=== PATIENT | female | born 1995 | race Caucasian/White ===

== ENCOUNTER 2016-06-15 13:33 | Emergency (ER) ==
[2016-06-15 13:45] VITALS: BP 149/83; TEMP 98.1; BMI 30.7
[2016-06-15 15:33] LABS: BASOPHILS # (AUTO) 0.1 K/uL (0-0.2); BASOPHILS % (AUTO) 0.6 % (0.0-3.0); EOSINOPHILS # (AUTO) 0.1 K/ul (0.0-0.7); EOSINOPHILS % (AUTO) 0.5 % (0.0-7.0); HEMATOCRIT 39.4 % (37.0-47.0); HEMOGLOBIN 13.8 g/dl (12.0-16.0); IMMATURE GRANULOCYTE % (AUTO) 0.6 % (0.0-5.0); LYMPHOCYTES # (AUTO) 3.8 K/uL (0.60-3.4); LYMPHOCYTES % (AUTO) 28.6 (10.0-50.0); MEAN CORPUSCULAR VOLUME 91.4 fl (81.0-99.0); MONOCYTES # (AUTO) 0.6 K/uL (0.4-2.0); MONOCYTES % (AUTO) 4.1 (0-10); NEUTROPHILS # (AUTO) 8.8 K/ul (2.0-6.9); NEUTROPHILS % (AUTO) 65.6; PLATELET COUNT 333 10^3/uL (140-440); RED BLOOD COUNT 4.31 10^6/ul (4.20-5.40); WHITE BLOOD COUNT 13.39 K/ul (4.6-10.2)
[2016-06-15 15:45] LABS: BILIRUBIN,URINE Negative (NEGATIVE); KETONES,URINE Trace (NEGATIVE); LEUKOCYTE ESTERASE ,URINE Negative (NEGATIVE); NITRITE,URINE Negative (NEGATIVE); PROTEIN,URINE Negative (NEGATIVE); URINE, BLOOD Negative (NEGATIVE)
[2016-06-15 15:46] LABS: URINE PREGNANCY INTERNAL QC INTERNAL QC VALID
[2016-06-15 15:49] LABS: ADD URINE MICROSCOPIC YES
[2016-06-15 15:54] LABS: COCAIN SCREEN,URINE NEGATIVE (NEGATIVE); FLU INTERNAL QC INTERNAL QC VALID; RAPID FLU A NEGATIVE (NEGATIVE); RAPID FLU B NEGATIVE (NEGATIVE)
[2016-06-15 15:57] LABS: ALANINE AMINOTRANSFERASE 18 U/L (12-78); ALBUMIN/GLOBULIN RATIO 1.25; ALKALINE PHOSPHATASE 76 U/L (42-98); ANION GAP 12.6; ASPARTATE AMINO TRANSFERASE 21 U/L (15-37); BILIRUBIN,TOTAL 0.55 mg/dL (0.00-1.20); BLOOD UREA NITROGEN 11 mg/dL (7-18); BUN/CREATININE RATIO 14.47; CARBON DIOXIDE 25 mmol/L (21-32); CHLORIDE 107 mmol/L (98-107); CREATINE KINASE 73 U/L; CREATININE 0.76 mg/dL (0.60-1.30); GLUCOSE 91 mg/dL (70-110); POTASSIUM 3.6 mmol/L (3.5-5.10); SODIUM 141 mmol/L (136-145); TOTAL PROTEIN 7.2 g/dL (6.4-8.2)
--- NOTE | 2016-06-15 16:23 | ED.PDOC ---
General ED Provider: Dr. ROMARIO ESPINOZA Chief Complaint: Syncope Stated Complaint: near syncope Time Seen by Physician: 13:39 (seen with akiko yeh at all times ) Information Source: Patient Exam Limitations: No limitations Primary Care Provider: MORRIS CANNON Nursing and Triage Documentation Reviewed and Agree: Yes Neurological Complaint Exam - Syncope/Near Syncope Complaint/Exam Onset/Duration: 3 days ago and yesterday had one episode this morning Symptoms Are: Resolved Episodes Lasting: Days Number of Episodes: 3 during which pt becomes weak and near syncopal but has not had syncope Episodes Witnessed: No Loss of Consciousness: No Associated Head Trauma: No Aggravating: None Alleviating: Reports: None Associated Signs and Symptoms: Denies: Pain, Decreased oral intake, Vomiting, Diarrhea, GI blood loss, Short of air, Chest pain, Palpitations, Diaphoresis, Lightheadedness, Dizziness, Weakness, AMS, Numbness, Headache, Seizure, Remote head trauma, Recent head trauma Related History: Similar episode Cardiac Risk Factors: Reports: None GI Bleed Risk Factors: Reports: None Dysrhythmia Risk Factors: Reports: None Related Surgical History: Reports: None JVD Present: No Carotid Bruit Present: No Rectal Heme Positive: No Glascow Coma Scale (see protocol): 15 Nystagmus Present: Yes Gag Reflex Present: No Meningeal Signs Positive: No Focal Weakness: Present: None Focal Sensory Loss: Present: None Gait: Normal Babinski Sign: Negative Right, Negative Left Heel to Toe Normal: No Differential Diagnoses: CAD, Dysrhythmia, Hyperventilation, Hypoglycemia, Metabolic Reaction, Medication Reaction Quality Indicators for Cardiac Chest Pain: EKG in 10min. Quality Indicator For Non-Traumatic Chest Pain/Syncope: EKG Performed Quality Indicators for AMI: EKG in 10min. Review of Systems - Review Of Systems Constitutional: Reports: No symptoms Eyes: Reports: No symptoms Ears, Nose, Mouth, Throat: Reports: No symptoms Respiratory: Reports: No symptoms Cardiac: Reports: Syncope GI: Reports: No symptoms : Reports: No symptoms Musculoskeletal: Reports: No symptoms Skin: Reports: No symptoms Neurological: Reports: No symptoms Endocrine: Reports: No symptoms Hematologic/Lymphatic: Reports: No symptoms All Other Systems: Reviewed and Negative Past Medical History - Past Medical History Endocrine: Reports: Unknown Cardiovascular: Reports: Unknown Respiratory: Reports: Unknown Hematological: Reports: Unknown Gastrointestinal: Reports: Unknown Genitourinary: Reports: Unknown Neuro/Psych: Reports: Unknown Musculoskeletal: Reports: Unknown Cancer: Reports: Unknown Last Menstrual Period: end of Apr - Surgical History General Surgical History: Reports: Unknown - Family History Family History: Reports: Unknown - Social History Smoking Status: Current every day smoker, Heavy tobacco smoker Hx Substance Use: No Alcohol Screening: None Physical Exam - Physical Exam Appearance: Well-appearing, No pain distress, Well-nourished Eyes: JAYJAY, EOMI, Conjunctiva clear ENT: Ears normal, Nose normal, Oropharynx normal Respiratory: Airway patent, Breath sounds clear, Breath sounds equal, Respirations nonlabored Cardiovascular: RRR, Pulses normal, No rub, No murmur GI/: Soft, Nontender, No masses, Bowel sounds normal, No Organomegaly Musculoskeletal: Normal strength, ROM intact, No edema, No calf tenderness Skin: Warm, Dry, Normal color Neurological: Sensation intact, Motor intact, Reflexes intact, Cranial nerves intact, Alert, Oriented Psychiatric: Affect appropriate, Mood appropriate Interpretation - Stain Sprayer Rate: Normal Rhythm: Sinus Ectopy: None - EKG Interpretation Rate: Normal Rhythm: Sinus Ectopy: None [place]: [place] ST Segment: Normal Critical Care Note - Critical Care Note Total Time (mins): 0 Course - Course Hematology/Chemistry: 06/15/16 15:15 06/15/16 15:15 Orders, Labs, Meds: Lab Review 06/15/16 06/15/16 14:50 15:15 WBC 13.39 H RBC 4.31 Hgb 13.8 Hct 39.4 MCV 91.4 MCH 32.0 H MCHC 35.0 RDW Coeff of Erik 11.8 Plt Count 333 Immature Gran % (Auto) 0.6 Neut % (Auto) 65.6 Lymph % (Auto) 28.6 [place] % (Auto) 4.1 Eos % (Auto) 0.5 Baso % (Auto) 0.6 Immature Gran # (Auto) 0.1 Neut # 8.8 H Lymph # 3.8 H [place] # 0.6 Eos # 0.1 Baso # 0.1 Sodium 141 Potassium 3.6 Chloride 107 Carbon Dioxide 25 Anion Gap 12.6 BUN 11 Creatinine 0.76 Estimated GFR (MDRD) 95.00 BUN/Creatinine Ratio 14.47 Glucose 91 Calcium 9.0 Total Bilirubin 0.55 AST 21 ALT 18 Alkaline Phosphatase 76 Total Creatine Kinase 73 Troponin I < 0.0100 Total Protein 7.2 Albumin 4.0 Globulin 3.2 Albumin/Globulin Ratio 1.25 Urine Color Yellow Urine Clarity Cloudy Urine pH 6.0 Ur Specific [place] 1.025 Urine Protein Negative Urine Glucose (UA) Negative Urine Ketones Trace Urine Blood Negative Urine Nitrite Negative Urine Bilirubin Negative Urine Urobilinogen 0.2 Ur Leukocyte Esterase Negative Ur Squamous Epith Cells Tntc Urine Test Negative Urine Opiates Screen Positive Ur Oxycodone Screen Negative Urine Methadone Screen Negative Ur Propoxyphene Screen Negative Ur Barbiturates Screen Negative U Tricyclic Antidepress Negative Ur Phencyclidine Scrn Negative Ur Amphetamine Screen Positive U Methamphetamines Scrn Negative U Benzodiazepines Scrn Negative Urine Cocaine Screen Negative U Cannabinoids Screen Positive Influenza A (Rapid) Negative Influenza B (Rapid) Negative Orders Category Date Time Status EKG-(ED ONLY) Stat CARDIO 06/15/16 14:49 Completed BLOOD CULTURE Stat LAB 06/15/16 15:15 Received CBC W/ AUTO DIFF Stat LAB 06/15/16 15:15 Completed COMPREHENSIVE METABOLIC PANEL Stat LAB 06/15/16 15:15 Completed CREATINE KINASE Stat LAB 06/15/16 15:15 Completed DRUG SCREEN (RAPID FOR ED) [DRUG SCREEN, URINE, RAPID] LAB 06/15/16 14:50 Completed Stat MOLECULAR GROUP A STREP Stat LAB 06/15/16 14:50 Results RAPID FLU A/B Stat LAB 06/15/16 14:50 Completed STREP SCREEN Stat LAB 06/15/16 14:50 Results TROPONIN I Stat LAB 06/15/16 15:15 Completed URINALYSIS C & S IF INDICATED Stat LAB 06/15/16 14:50 Completed URINE Stat LAB 06/15/16 14:50 Completed Vital Signs: Temp Pulse Resp BP Pulse Ox 06/15/16 13:37 98.1 F 87 20 149/83 H 98 Departure - Departure Time of Disposition: 16:25 Disposition: HOME SELF-CARE Discharge Problem: Syncope, Syncope, near Instructions: Near Syncope (ED), Syncope (ED), Hypotension (ED), Lightheadedness (ED) Condition: Good Pt referred to PMD for follow-up: No Additional Instructions: Please call your Family Physician as soon as possible to schedule a follow-up appointment. Allergies/Adverse Reactions: Allergies No Known Allergies Allergy (Verified 06/15/16 14:47) Home Medications: Ambulatory Orders 1 [No Reported Medications] 02/05/16
== END 2016-06-15 16:30 | disposition home or self-care (01) ==
LOC: ED 13:33
DX: R55 Syncope and collapse (principal); F17.210 Nicotine dependence, cigarettes, uncomplicated
CPT/HCPCS: 36415; 80053; 80306; 81001; 81025; 82550; 84484; 85025; 87040; 87651; 87804; 87880; 93005; 93010; 99283

== ENCOUNTER 2016-07-11 15:26 | Emergency (ER) ==
[2016-07-11 15:35] VITALS: BP 139/88; TEMP 100.2; BMI 30.4
--- NOTE | 2016-07-11 15:36 | ED.PDOC ---
General ED Provider: Dr. VEE STEVENS JR Chief Complaint: Wound Check Stated Complaint: onset "boil" to rt inner thigh--removed clothing after work today and now it is open and draining--has had boils in past--. [ End ]1 WEEK. 100.2 74 16 98% 139/88 05/04 Time Seen by Physician: 15:35 Mode of Arrival: Walk-In Information Source: Patient Exam Limitations: No limitations Primary Care Provider: MORRIS CANNON Nursing and Triage Documentation Reviewed and Agree: No Review of Systems - Review Of Systems Constitutional: Reports: No symptoms Eyes: Reports: No symptoms Ears, Nose, Mouth, Throat: Reports: No symptoms Respiratory: Reports: No symptoms Cardiac: Reports: No symptoms GI: Reports: No symptoms : Reports: No symptoms Musculoskeletal: Reports: No symptoms Skin: Reports: Lesions Neurological: Reports: No symptoms Endocrine: Reports: No symptoms Hematologic/Lymphatic: Reports: No symptoms All Other Systems: Other Past Medical History - Past Medical History Endocrine: Reports: Unknown Cardiovascular: Reports: Unknown Respiratory: Reports: Unknown Hematological: Reports: Unknown Gastrointestinal: Reports: Unknown Genitourinary: Reports: Unknown Neuro/Psych: Reports: Unknown Musculoskeletal: Reports: Unknown Cancer: Reports: Unknown Last Menstrual Period: 2 weeks ago - Surgical History General Surgical History: Reports: Unknown - Family History Family History: Reports: Unknown - Social History Smoking Status: Current every day smoker, Light tobacco smoker Hx Substance Use: No Alcohol Screening: Occasionally - Immunizations Tetanus Shot up to Date: No Physical Exam - Physical Exam Appearance: Well-appearing Pain Distress: Mild Skin: Warm, Dry, Normal color (NOTE 5MM BY 2 X3DEEP LESION RIGHT GROIN TENDER NO ERYTHWMA NO DRAINAGE AT THSI TIME CULTURE OBTAINED) Neurological: Sensation intact, Motor intact, Reflexes intact, Cranial nerves intact, Alert, Oriented Critical Care Note - Critical Care Note Total Time (mins): 0 Course - Course Vital Signs: Temp Pulse Resp BP Pulse Ox 07/11/16 15:27 100.2 F H 74 16 139/88 98 Departure - Departure Time of Disposition: 16:24 Disposition: HOME SELF-CARE Discharge Problem: Abscess of groin, right Instructions: Abscess (ED) Condition: Good Pt referred to PMD for follow-up: Yes Additional Instructions: RECHECK ONE WEEK IF NOT RESOLVED BANDAGE FOR CLEANLINESS AND TO AVOID ABRASION BACTRIM FOR INFECTION BACITRACIN OINTMENT FOR BANDAGE IBUPROFEN FOR MUIR MAY USE WITH TYLENOL Prescriptions: Naproxen [Naprosyn] 500 mg PO Q12HR PRN #30 tablet PRN Reason: PAIN Sulfamethoxazole/Trimethoprim [Bactrim Ds 800/160 mg] 1 tab PO Q12HR #14 tablet Bacitracin 1 applic TP 2-4XD #1 pkg Allergies/Adverse Reactions: Allergies No Known Allergies Allergy (Verified 07/11/16 15:33) Home Medications: Ambulatory Orders Bacitracin 1 applic TP 2-4XD #1 pkg 07/11/16 Naproxen [Naprosyn] 500 mg PO Q12HR PRN #30 tablet 07/11/16 Sulfamethoxazole/Trimethoprim [Bactrim Ds 800/160 mg] 1 tab PO Q12HR #14 tablet 07/11/16
== END 2016-07-11 16:40 | disposition home or self-care (01) ==
LOC: ED 15:26
DX: L02.214 Cutaneous abscess of groin (principal); B95.62 Methicillin resistant Staphylococcus aureus infection as the cause of diseases classified elsewhere; F17.210 Nicotine dependence, cigarettes, uncomplicated
CPT/HCPCS: 87070; 87186; 99283

== ENCOUNTER 2016-07-13 11:30 | Emergency (ER) ==
[2016-07-13 11:36] VITALS: BP 135/84; TEMP 98.3; BMI 30.7
[2016-07-13 13:24] LABS: BASOPHILS # (AUTO) 0.1 K/uL (0-0.2); BASOPHILS % (AUTO) 0.4 % (0.0-3.0); EOSINOPHILS # (AUTO) 0.1 K/ul (0.0-0.7); EOSINOPHILS % (AUTO) 0.6 % (0.0-7.0); HEMATOCRIT 38.6 % (37.0-47.0); HEMOGLOBIN 13.6 g/dl (12.0-16.0); IMMATURE GRANULOCYTE % (AUTO) 0.3 % (0.0-5.0); LYMPHOCYTES # (AUTO) 4.1 K/uL (0.60-3.4); LYMPHOCYTES % (AUTO) 30.2 (10.0-50.0); MEAN CORPUSCULAR HEMOGLOBIN 32.2 pg (27.0-31.0); MEAN CORPUSCULAR HGB CONC 35.2 (31.8-35.4); MEAN CORPUSCULAR VOLUME 91.5 fl (81.0-99.0); MONOCYTES # (AUTO) 0.7 K/uL (0.4-2.0); MONOCYTES % (AUTO) 5.2 (0-10); NEUTROPHILS # (AUTO) 8.7 K/ul (2.0-6.9); NEUTROPHILS % (AUTO) 63.3; PLATELET COUNT 347 10^3/uL (140-440); RED BLOOD COUNT 4.22 10^6/ul (4.20-5.40); WHITE BLOOD COUNT 13.67 K/ul (4.6-10.2)
[2016-07-13 13:49] LABS: ALANINE AMINOTRANSFERASE 15 U/L (12-78); ALBUMIN 3.8 g/dL (3.4-5.0); ALBUMIN/GLOBULIN RATIO 1.19; ALKALINE PHOSPHATASE 78 U/L (42-98); ANION GAP 13.3; ASPARTATE AMINO TRANSFERASE 19 U/L (15-37); BILIRUBIN,TOTAL 0.35 mg/dL (0.00-1.20); BLOOD UREA NITROGEN 12 mg/dL (7-18); BUN/CREATININE RATIO 17.39; CALCIUM 9.4 mg/dL (8.2-10.2); CARBON DIOXIDE 25 mmol/L (21-32); CHLORIDE 106 mmol/L (98-107); CREATINE KINASE 83 U/L; CREATININE 0.69 mg/dL (0.60-1.30); GLUCOSE 94 mg/dL (70-110); POTASSIUM 4.3 mmol/L (3.5-5.10); SODIUM 140 mmol/L (136-145)
[2016-07-13 13:57] LABS: URINE PREGNANCY INTERNAL QC INTERNAL QC VALID
--- NOTE | 2016-07-13 13:58 | ED.PDOC ---
General ED Provider: Dr. ROMARIO ESPINOZA Chief Complaint: Chest Pain Stated Complaint: CHEST PAIN Time Seen by Physician: 12:20 (CHEST PAIN AFTER IN THE FAMILY) Mode of Arrival: Walk-In Information Source: Patient Exam Limitations: No limitations Primary Care Provider: MORRIS CANNON Nursing and Triage Documentation Reviewed and Agree: No Cardiovascular Complaint Exam - Chest Pain Complaint/Exam Onset: Gradual Duration: 2 DAYS Symptoms Are: Still present Initial Severity: Mild Current Severity: Mild Location: Reports: Midsternal Pain Radiates: Reports: None Aggravating: Reports: None Alleviating: Reports: None Associated Signs and Symptoms: Denies: Diaphoresis, Nausea, Vomiting, Fever, Palpitations, Cough, Hemoptysis, Back pain, Abdominal pain, Dizziness, Short of air, Calf pain, Calf swelling Related History: Reports: Similar episode History of Healthcare-Acquired Pneumonia: Reports: No AMI/ACS Risk Factors: Reports: None TAD Risk Factors: Reports: None Pulmonary Embolism Risk Factors: Reports: None Prior Care for this Complaint: No Recent Stress Test: No Recent Echo/LV Function: No JVD Present: No Subcutaneous Emphysema Present: No Diminshed Breath Sounds: No Reproducible Chest Wall Pain: No Bilateral Pulses Present: No If Risk Factors for AMI/ACS Consider: EKG, Cardiac Enzymes Quality Indicator For Non-Traumatic Chest Pain/Syncope: EKG Performed Review of Systems - Review Of Systems Constitutional: Reports: No symptoms Eyes: Reports: No symptoms Ears, Nose, Mouth, Throat: Reports: No symptoms Respiratory: Reports: No symptoms Cardiac: Reports: Chest pain GI: Reports: No symptoms : Reports: No symptoms Musculoskeletal: Reports: No symptoms Skin: Reports: No symptoms Neurological: Reports: No symptoms Endocrine: Reports: No symptoms Hematologic/Lymphatic: Reports: No symptoms All Other Systems: Reviewed and Negative Past Medical History - Past Medical History Endocrine: Reports: Unknown Cardiovascular: Reports: Unknown Respiratory: Reports: Unknown Hematological: Reports: Unknown Gastrointestinal: Reports: Unknown Genitourinary: Reports: Unknown Neuro/Psych: Reports: Unknown Musculoskeletal: Reports: Unknown Cancer: Reports: Unknown Last Menstrual Period: 2 weeks ago - Surgical History General Surgical History: Reports: Unknown - Family History Family History: Reports: Unknown - Social History Smoking Status: Current every day smoker, Heavy tobacco smoker Hx Substance Use: No Alcohol Screening: Occasionally - Immunizations Tetanus Shot up to Date: Yes Physical Exam - Physical Exam Appearance: Well-appearing, No pain distress, Well-nourished Eyes: JAYJAY, EOMI, Conjunctiva clear ENT: Ears normal, Nose normal, Oropharynx normal Respiratory: Airway patent, Breath sounds clear, Breath sounds equal, Respirations nonlabored Cardiovascular: RRR, Pulses normal, No rub, No murmur GI/: Soft, Nontender, No masses, Bowel sounds normal, No Organomegaly Musculoskeletal: Normal strength, ROM intact, No edema, No calf tenderness Skin: Warm, Dry, Normal color Neurological: Sensation intact, Motor intact, Reflexes intact, Cranial nerves intact, Alert, Oriented Psychiatric: Affect appropriate, Mood appropriate Critical Care Note - Critical Care Note Total Time (mins): 0 Course - Course Hematology/Chemistry: 07/13/16 13:15 07/13/16 13:15 Orders, Labs, Meds: Lab Review 07/13/16 13:15 WBC 13.67 H RBC 4.22 Hgb 13.6 Hct 38.6 MCV 91.5 MCH 32.2 H MCHC 35.2 RDW Coeff of Erik 11.8 Plt Count 347 Immature Gran % (Auto) 0.3 Neut % (Auto) 63.3 Lymph % (Auto) 30.2 [place] % (Auto) 5.2 Eos % (Auto) 0.6 Baso % (Auto) 0.4 Immature Gran # (Auto) 0.0 Neut # 8.7 H Lymph # 4.1 H [place] # 0.7 Eos # 0.1 Baso # 0.1 Sodium 140 Potassium 4.3 Chloride 106 Carbon Dioxide 25 Anion Gap 13.3 BUN 12 Creatinine 0.69 Estimated GFR (MDRD) 106.00 BUN/Creatinine Ratio 17.39 Glucose 94 Calcium 9.4 Total Bilirubin 0.35 AST 19 ALT 15 Alkaline Phosphatase 78 Total Creatine Kinase 83 Troponin I < 0.0100 Total Protein 7.0 Albumin 3.8 Globulin 3.2 Albumin/Globulin Ratio 1.19 Orders Category Date Time Status EKG-(ED ONLY) Stat CARDIO 07/13/16 13:07 Completed CBC W/ AUTO DIFF Stat LAB 07/13/16 13:15 Completed COMPREHENSIVE METABOLIC PANEL Stat LAB 07/13/16 13:15 Completed CREATINE KINASE Stat LAB 07/13/16 13:15 Completed TROPONIN I Stat LAB 07/13/16 13:15 Completed URINE Stat LAB 07/13/16 13:40 Received CHEST, 2 VIEWS PA & LAT Stat RADS 04/21/17 13:07 Ordered Vital Signs: Temp Pulse Resp BP Pulse Ox 07/13/16 11:30 98.3 F 91 H 16 135/84 96 DEREJE Risk Score DEREJE Risk Score: Risk Score Odds of by 30D 0 0.1 (0.1-0.2) 1 0.3 (0.2-0.3) 2 0.4 (0.3-0.5) 3 0.7 (0.6-0.9) 4 1.2 (1.0-1.5) 5 2.2 (1.9-2.6) 6 3.0 (2.5-3.6) 7 4.8 (3.8-6.1) Departure - Departure Time of Disposition: 13:58 Disposition: HOME SELF-CARE Discharge Problem: Chest pain, Atypical angina Instructions: Angina (ED), Chest Pain (ED), Noncardiac Chest Pain (ED) Condition: Good Pt referred to PMD for follow-up: No Additional Instructions: Please call your Family Physician as soon as possible to schedule a follow-up appointment. Allergies/Adverse Reactions: Allergies No Known Allergies Allergy (Verified 07/13/16 11:36) Home Medications: Ambulatory Orders Bacitracin 1 applic TP 2-4XD #1 pkg 07/11/16 Naproxen [Naprosyn] 500 mg PO Q12HR PRN #30 tablet 07/11/16 Sulfamethoxazole/Trimethoprim [Bactrim Ds 800/160 mg] 1 tab PO Q12HR #14 tablet 07/11/16
--- NOTE | 2016-07-13 14:34 | DI ---
EXAM: Two x-rays of the chest. Comparison: 12/21/2009. Reason for exam: Pain. FINDINGS: No pneumothorax, pleural effusion, or focal consolidation. The cardiac silhouette is not enlarged. The imaged osseous structures are unremarkable without acute fracture. Impression: No acute cardiopulmonary process.
== END 2016-07-13 15:02 | disposition home or self-care (01) ==
LOC: ED 11:30
DX: I20.9 Angina pectoris, unspecified (principal); F17.210 Nicotine dependence, cigarettes, uncomplicated
CPT/HCPCS: 36415; 80053; 81025; 82550; 84484; 85025; 93005; 93010; 99283

== ENCOUNTER 2016-08-11 20:37 | Emergency (ER) ==
[2016-08-11 20:45] VITALS: BP 133/87; TEMP 98.4; BMI 28.3
--- NOTE | 2016-08-11 20:53 | ED.PDOC ---
General ED Provider: Dr. DAVID CHARLTON Chief Complaint: Sore Throat Stated Complaint: Patient states that she has had sore throat for 2 days with a hoarse voice. Also complains of headache, cold sweats, temp 99.7 at 3pm, vomited x 3 today, Took 400mg of Ibuprofen at 6 pm Time Seen by Physician: 21:20 Mode of Arrival: Walk-In Information Source: Patient Exam Limitations: No limitations Primary Care Provider: MORRIS CANNON Nursing and Triage Documentation Reviewed and Agree: Yes EENT Complaint Exam - Throat Complaint/Exam Onset/Duration: 2 days Symptoms Are: Still present Timimg: Constant Initial Severity: Moderate Current Severity: Moderate Aggravating: Reports: Eating Alleviating: Reports: Antipyretics Associated Signs and Symptoms: Reports: Fever, Vomiting Uvula Midline: Yes Montse-tonsillar Fluctuence: No Scarlatinaform Rash Present: No Stridor Present: No Sinus Tenderness Present: No Tonsillar Hypertrophy Present: No Tonsillar Exudate Present: No Motnse-tonsillar Swelling Present: No Adenopathy Present: No Splenomegaly Present: No Differential Diagnoses: Tonsillitis, URI Review of Systems - Review Of Systems Constitutional: Reports: Fever Ears, Nose, Mouth, Throat: Reports: Throat swelling GI: Reports: Nausea, Vomiting Neurological: Reports: Headache All Other Systems: Reviewed and Negative Past Medical History - Past Medical History Endocrine: Reports: Unknown Cardiovascular: Reports: Unknown Respiratory: Reports: Unknown Hematological: Reports: Unknown Gastrointestinal: Reports: Unknown Genitourinary: Reports: Unknown Neuro/Psych: Reports: Unknown Musculoskeletal: Reports: Unknown Cancer: Reports: Unknown Last Menstrual Period: UNSURE - Surgical History General Surgical History: Reports: Unknown - Family History Family History: Reports: Unknown - Social History Smoking Status: Current every day smoker, Heavy tobacco smoker Hx Substance Use: No Alcohol Screening: Occasionally - Immunizations Tetanus Shot up to Date: Yes Physical Exam - Physical Exam Appearance: Ill-appearing Ill-appearing: Mild Pain Distress: Mild Eyes: JAYJAY, EOMI, Conjunctiva clear ENT: Ears normal, Nose normal, Oropharynx normal Neck: Supple Respiratory: Airway patent, Breath sounds clear, Breath sounds equal, Respirations nonlabored Cardiovascular: RRR, Pulses normal, No rub, No murmur GI/: Soft, Nontender, No masses, Bowel sounds normal, No Organomegaly Musculoskeletal: Normal strength Skin: Warm, Dry, Normal color Psychiatric: Anxious Critical Care Note - Critical Care Note Total Time (mins): 0 Course - Course Vital Signs: Temp Pulse Resp BP Pulse Ox 08/11/16 20:38 98.4 F 86 18 133/87 99 Departure - Departure Time of Disposition: 21:30 Disposition: HOME SELF-CARE Discharge Problem: Viral syndrome Pharyngitis Qualifiers: Pharyngitis/tonsillitis etiology: other specified organisms Qualifier Code: ( J02.8) Acute pharyngitis due to other specified organisms Instructions: Viral Syndrome (ED), Pharyngitis (ED) Condition: Fair Pt referred to PMD for follow-up: Yes Additional Instructions: Alternate Motrin and Tylenol as needed for fever Follow up with PCP in 3 days Push fluids. Allergies/Adverse Reactions: Allergies No Known Allergies Allergy (Verified 08/11/16 20:45) Home Medications: Ambulatory Orders Ibuprofen 200 mg PO Q4H PRN 08/11/16 Naproxen Sodium [Aleve] 220 mg PO BID PRN 08/11/16 Disposition Discussed With: Patient
[2016-08-11 21:27] LABS: FLU INTERNAL QC INTERNAL QC VALID; RAPID FLU A NEGATIVE (NEGATIVE); RAPID FLU B NEGATIVE (NEGATIVE)
[2016-08-11] MEDS ORDERED: MOTRIN PO STA (21:27)
== END 2016-08-11 21:50 | disposition home or self-care (01) ==
LOC: ED 20:37
DX: B34.9 Viral infection, unspecified (principal); J02.9 Acute pharyngitis, unspecified
CPT/HCPCS: 87651; 87804; 87880; 99283

== ENCOUNTER 2016-09-14 14:47 | Outpatient (CLI) ==
--- NOTE | 2016-09-14 15:19 | DI ---
EXAM: Left fingers three views HISTORY: Third digit injury, pain. FINDINGS: Bone and joint structures appear normal. There is no displaced fracture or joint disloca tion seen. General bone density and soft tissues are within normal limits. IMPRESSION: Findings within normal limits.
== END 2016-09-14 14:48 | disposition home or self-care (01) ==
LOC: RAD 14:47
PROVIDERS: ATTEND Family Medicine
DX: M79.645 Pain in left finger(s) (principal)

== ENCOUNTER 2016-09-29 19:13 | Emergency (ER) ==
[2016-09-29 19:20] VITALS: BP 147/92; TEMP 100.1; BMI 27.4
[2016-09-29 19:29] LABS: BILIRUBIN,URINE 1+ (NEGATIVE); KETONES,URINE Negative (NEGATIVE); LEUKOCYTE ESTERASE ,URINE Negative (NEGATIVE); NITRITE,URINE Negative (NEGATIVE); PH,URINE 5.5 (5-9); PROTEIN,URINE 1+ (NEGATIVE); URINE, BLOOD Negative (NEGATIVE)
[2016-09-29 19:32] LABS: ADD URINE MICROSCOPIC YES
[2016-09-29 19:33] LABS: URINE PREGNANCY INTERNAL QC INTERNAL QC VALID
--- NOTE | 2016-09-29 19:42 | ED.PDOC ---
General ED Provider: Dr. MORRIS CANNON-ER Chief Complaint: Back Pain Stated Complaint: i helped a friend move some book shelves i hurt mylower back Time Seen by Physician: 19:15 Mode of Arrival: Walk-In Information Source: Patient Exam Limitations: No limitations Primary Care Provider: MORRIS CANNON Nursing and Triage Documentation Reviewed and Agree: Yes Musculoskeletal Complaint Exam - Back Pain Complaint/Exam Mechanism of Injury: Reports: No known trauma Onset/Duration: 24hrs Symptoms Are: Still present Timing: Constant Initial Severity: Mild Current Severity: Mild Location: Reports: Discrete Character: Reports: Dull, Aching Aggravating: Reports: Movements, Lifting, Bending, Walking Alleviating: Reports: None Associated Signs and Symptoms: Denies: Swelling, Redness, Bruising, Fever, Weakness, Numbness, Tingling, Bladder incontinence, Bowel incontinence, Weight loss, Pain with weight bearing AAA Risk Factors: Reports: None Cauda Equina Risk Factors: Reports: None Epidural Abcess Risk Factors: Reports: None Related Surgical History: Reports: None Focal Tenderness: Yes Paraspinal Muscle Tenderness: Yes Paraspinal Muscle Spasm: Yes Scoliosis: No Lordosis: No Kyphosis: No SLR Test: Right Negative, Left Negative Hip Motion Testing Pain: Right Negative, Left Negative Focal Weakness: Present: None Focal Sensory Loss: Present: None Gait: Present: Abnormal Differential Diagnoses: Strain, Sprain Review of Systems - Review Of Systems Constitutional: Reports: No symptoms Eyes: Reports: No symptoms Ears, Nose, Mouth, Throat: Reports: No symptoms Respiratory: Reports: No symptoms Cardiac: Reports: No symptoms GI: Reports: No symptoms : Reports: No symptoms Musculoskeletal: Reports: Back pain, Muscle pain Skin: Reports: No symptoms Neurological: Reports: No symptoms Endocrine: Reports: No symptoms Hematologic/Lymphatic: Reports: No symptoms All Other Systems: Reviewed and Negative Past Medical History - Past Medical History Previously Healthy: Yes Endocrine: Reports: Unknown Cardiovascular: Reports: Unknown Respiratory: Reports: Unknown Hematological: Reports: Unknown Gastrointestinal: Reports: Unknown Genitourinary: Reports: Unknown Neuro/Psych: Reports: Unknown Musculoskeletal: Reports: Unknown Cancer: Reports: Unknown Last Menstrual Period: last month - Surgical History General Surgical History: Reports: Unknown - Family History Family History: Reports: Unknown - Social History Smoking Status: Current some day smoker Hx Substance Use: No Alcohol Screening: Occasionally Lives: With family - Immunizations Tetanus Shot up to Date: Yes Physical Exam - Physical Exam Appearance: Well-appearing, No pain distress, Well-nourished Pain Distress: Moderate Eyes: JAYJAY, EOMI, Conjunctiva clear ENT: Ears normal, Nose normal, Oropharynx normal Neck: Supple Respiratory: Airway patent Cardiovascular: RRR, Pulses normal, No rub, No murmur GI/: Soft, Nontender, No masses, Bowel sounds normal, No Organomegaly Musculoskeletal: Limited ROM Skin: Warm Neurological: Sensation intact, Motor intact, Reflexes intact, Cranial nerves intact, Alert, Oriented Psychiatric: Affect appropriate Critical Care Note - Critical Care Note Total Time (mins): 0 Course - Course Orders, Labs, Meds: Lab Review 09/29/16 19:22 Urine Color Yellow Urine Clarity Turbid Urine pH 5.5 Ur Specific [place] >=1.030 Urine Protein 1+ Urine Glucose (UA) Negative Urine Ketones Negative Urine Blood Negative Urine Nitrite Negative Urine Bilirubin 1+ Urine Urobilinogen 1.0 Ur Leukocyte Esterase Negative Ur Squamous Epith Cells Tntc Urine Mucus 2+ Urine Test Negative Orders Category Date Time Status URINALYSIS C & S IF INDICATED Stat LAB 09/29/16 19:22 Completed URINE Stat LAB 09/29/16 19:22 Completed Vital Signs: Temp Pulse Resp BP Pulse Ox 09/29/16 19:14 100.1 F H 88 16 147/92 H 98 Departure - Departure Time of Disposition: 19:41 Disposition: HOME SELF-CARE Discharge Problem: Backache Instructions: Low Back Strain (ED) Condition: Good Pt referred to PMD for follow-up: No Additional Instructions: toradol 10mg qid prn pain #16--flexeril 5mg tid #21--heat alt ice--recheck in 72hrs if not improved Allergies/Adverse Reactions: Allergies No Known Allergies Allergy (Verified 09/29/16 19:22) Home Medications: Ambulatory Orders Ibuprofen 200 mg PO Q4H PRN 08/11/16 Naproxen Sodium [Aleve] 220 mg PO BID PRN 08/11/16 Disposition Discussed With: Patient
== END 2016-09-29 19:51 | disposition home or self-care (01) ==
LOC: ED 19:13
DX: M54.5 Low back pain (principal); X50.1XXA Overexertion from prolonged static or awkward postures, initial encounter; F17.210 Nicotine dependence, cigarettes, uncomplicated
CPT/HCPCS: 81001; 81025; 99282

== ENCOUNTER 2016-10-03 14:24 | Outpatient (CLI) ==
--- NOTE | 2016-10-03 15:03 | DI ---
Exam: Five x-rays of the lumbar spine. Comparison: CT performed 07/31/2014. Reason for exam: Low back pain. FINDINGS: No acute fracture or listhesis. The vertebral bodies and intervertebral body disc space heights are well maintained. There is no significant arthrosis. There is minimal straightening of the lumbar lordotic curve. Impression: No acute fracture or listhesis in the lumbar spine
== END 2016-10-03 14:25 | disposition home or self-care (01) ==
LOC: RAD 14:24
PROVIDERS: ATTEND Family Medicine
DX: M54.5 Low back pain (principal)

== ENCOUNTER 2016-11-01 10:35 | Outpatient (CLI) ==
--- NOTE | 2016-11-02 11:39 | MRI ---
EXAM: Lumbar spine MRI without contrast. HISTORY: Back pain with radiculopathy. COMPARISON: Lumbar spine radiographs 10/03/[address] scan 07/31/2014. TECHNIQUE: Multiplanar, multisequence MR images were acquired of the lumbar spine without contrast. FINDINGS: Five lumbar-type vertebra are present. There is straightening of the usual lumbar lordos is and there is a trace anterolisthesis of L4 on L5 and 1.5 mm retrolisthesis of L5 on S1. There is minor lower lumbar ventral spondylosis and there is mild disc space narrowing disc desiccation at L 4-5 and moderate disc space narrowing and disc desiccation at L5-S1 with minor endplate irregularity and dark T1 and STIR signal sclerosis along the S1 superior endplate. Conus medullaris ends at L1- 2 and has normal configuration and signal intensity. 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 The partially visualized liver, spleen and kidneys are unremarkable. There are no paravertebral mas ses. T12-L1, L1-2, L2-3, L3-4: The intervertebral discs are normal. There is no central canal stenosis or foraminal stenosis. L4-5: There is mild disc bulge and a small central disc extrusion that extends onto the dorsum of t he L5 vertebra superior endplate. The bulging disc minimally narrows inferior neural foramina bilat erally, greater on the left. The thecal sac is small at this level measures 8.2 mm in diameter. L5-S1: There is retrolisthesis of L5 on S1 and the superior endplate of S1 is smaller than the infe rior endplate of L5. There is a minor disc bulge with marginal osteophytes that minimally narrows in ferior neural foramina bilaterally and there is a superimposed central disc protrusion that is sligh tly asymmetric the right which encroaches on the right S1 nerve. There is minor bilateral foraminal stenosis, greater on the left. IMPRESSION: 1. Small central disc herniation L4-5. 2. Small central disc herniation L5-S1 that is slightly asymmetric to the right which encroaches on the right S1 nerve.
== END 2016-11-01 10:36 | disposition home or self-care (01) ==
LOC: RAD 10:35
PROVIDERS: ATTEND Family Medicine
DX: M54.40 Lumbago with sciatica, unspecified side (principal); M54.16 Radiculopathy, lumbar region

== ENCOUNTER 2016-11-23 17:10 | Emergency (ER) ==
[2016-11-23 17:13] VITALS: BP 147/80; TEMP 99.5; BMI 29.2
[2016-11-23] MEDS ORDERED: ZOFRAN 4 MG/2 ML IM STA (17:17)
[2016-11-23] MEDS ORDERED: MORPHINE 4 MG/ML SYRINGE IM STA (17:17)
--- NOTE | 2016-11-23 17:21 | ED.PDOC ---
General ED Provider: Dr. ROMARIO ESPINOZA Chief Complaint: Back Pain Stated Complaint: back pain Time Seen by Physician: 05:30 (chronic back pain) Mode of Arrival: Walk-In Information Source: Patient Exam Limitations: No limitations Primary Care Provider: MORRIS CANNON Nursing and Triage Documentation Reviewed and Agree: Yes Musculoskeletal Complaint Exam - Back Pain Complaint/Exam Mechanism of Injury: Reports: No known trauma Onset/Duration: chronic Symptoms Are: Still present Timing: Intermittent Episodes Lasting: Days Initial Severity: Moderate Current Severity: Moderate Location: Reports: Discrete Character: Reports: Aching Aggravating: Reports: None Alleviating: Reports: None Associated Signs and Symptoms: Denies: Swelling, Redness, Bruising, Fever, Weakness, Numbness, Tingling, Abdominal pain, Flank pain, Bladder incontinence, Bowel incontinence, Weight loss, Pain with weight bearing Related History: Reports: Similar episode TAD Risk Factors: Reports: None AAA Risk Factors: Reports: None Cauda Equina Risk Factors: Reports: None Related Surgical History: Reports: None Focal Tenderness: No Paraspinal Muscle Tenderness: No Paraspinal Muscle Spasm: No Scoliosis: No Lordosis: No Kyphosis: No SLR Test: Right Negative, Left Negative Hip Motion Testing Pain: Right Negative, Left Negative Focal Weakness: Present: None Focal Sensory Loss: Present: None Gait: Present: Normal Review of Systems - Review Of Systems Constitutional: Reports: No symptoms Eyes: Reports: No symptoms Ears, Nose, Mouth, Throat: Reports: No symptoms Respiratory: Reports: No symptoms Cardiac: Reports: No symptoms GI: Reports: No symptoms : Reports: No symptoms Musculoskeletal: Reports: Back pain Skin: Reports: No symptoms Neurological: Reports: No symptoms Endocrine: Reports: No symptoms Hematologic/Lymphatic: Reports: No symptoms All Other Systems: Reviewed and Negative Past Medical History - Past Medical History Previously Healthy: Yes Endocrine: Reports: Unknown Cardiovascular: Reports: Unknown Respiratory: Reports: Unknown Hematological: Reports: Unknown Gastrointestinal: Reports: Unknown Genitourinary: Reports: Unknown Neuro/Psych: Reports: Unknown Musculoskeletal: Reports: Unknown Cancer: Reports: Unknown Last Menstrual Period: 3 WEEKS AGO - Surgical History General Surgical History: Reports: Unknown - Family History Family History: Reports: Unknown - Social History Smoking Status: Current some day smoker Hx Substance Use: No Alcohol Screening: Occasionally Physical Exam - Physical Exam Appearance: Well-appearing, No pain distress, Well-nourished Eyes: JAYJAY, EOMI, Conjunctiva clear ENT: Ears normal, Nose normal, Oropharynx normal Respiratory: Airway patent, Breath sounds clear, Breath sounds equal, Respirations nonlabored Cardiovascular: RRR, Pulses normal, No rub, No murmur GI/: Soft, Nontender, No masses, Bowel sounds normal, No Organomegaly Musculoskeletal: Normal strength, ROM intact, No edema, No calf tenderness Skin: Warm, Dry, Normal color Neurological: Sensation intact, Motor intact, Reflexes intact, Cranial nerves intact, Alert, Oriented Psychiatric: Affect appropriate, Mood appropriate Critical Care Note - Critical Care Note Total Time (mins): 0 Course - Course Orders, Labs, Meds: Orders Category Date Time Status Morphine Sulfate [Morphine 4 mg/ml Syringe] MEDS 11/23/16 17:17 Stat 4 mg IM ONCE STA Ondansetron HCl/Pf [Zofran 4 mg/2 ml] MEDS 11/23/16 17:17 Stat 4 mg IM ONCE STA Medications Discontinued Medications Generic Name Dose Route Start Last Admin Trade Name Matheusq PRN Reason Stop Dose Admin Morphine Sulfate 4 mg 11/23/16 17:17 Morphine 4 Mg/Ml Syringe IM 11/23/16 17:18 ONCE STA Ondansetron HCl 4 mg 11/23/16 17:17 Zofran 4 Mg/2 Ml IM 11/23/16 17:18 ONCE STA Vital Signs: Temp Pulse Resp BP Pulse Ox 11/23/16 17:10 99.5 F 95 H 20 147/80 H 98 Departure - Departure Time of Disposition: 17:22 Disposition: HOME SELF-CARE Discharge Problem: Backache Chronic back pain Qualifiers: Back pain laterality: midline Instructions: Chronic Back Pain (ED) Condition: Good Pt referred to PMD for follow-up: Yes Prescriptions: Hydrocodone/Acetaminophen [Occidental 10-325 Tablet] 1 each PO Q8HR #7 tablet Allergies/Adverse Reactions: Allergies No Known Allergies Allergy (Verified 11/23/16 17:13) Home Medications: Ambulatory Orders Ibuprofen 200 mg PO Q4H PRN 08/11/16 Naproxen Sodium [Aleve] 220 mg PO BID PRN 08/11/16 Hydrocodone/Acetaminophen [Occidental 10-325 Tablet] 1 each PO Q8HR #7 tablet
== END 2016-11-23 17:49 | disposition home or self-care (01) ==
LOC: ED 17:10
DX: M54.9 Dorsalgia, unspecified (principal); G89.29 Other chronic pain; F17.210 Nicotine dependence, cigarettes, uncomplicated
CPT/HCPCS: 96372; 99282

== ENCOUNTER 2017-02-13 17:42 | Emergency (ER) ==
[2017-02-13 17:47] VITALS: BP 148/91; TEMP 100.6; BMI 31.8
[2017-02-13] MEDS ORDERED: NORCO 10-325 PO STA (18:26)
--- NOTE | 2017-02-13 18:32 | ED.PDOC ---
General Stated Complaint: LOW BACK AND RIGHT FLANK PAIN Time Seen by Physician: 17:50 (SEEN WITH MAY AT ALL TIMES NO TRAUMA HISTORY OF CHRONIC BACK PAIN) Mode of Arrival: Walk-In Information Source: Patient Exam Limitations: No limitations Nursing and Triage Documentation Reviewed and Agree: Yes <ROMARIO ESPINOZA - Last Filed: 02/13/17 18:30> <NICOLE RODRIGUEZ - Last Filed: 02/13/17 20:26> ED Provider: Dr. NICOLE RODRIGUEZ Chief Complaint: Back Pain Primary Care Provider: MORRIS CANNON Musculoskeletal Complaint Exam - Back Pain Complaint/Exam Mechanism of Injury: Reports: No known trauma Onset/Duration: 2 DAYS Symptoms Are: Still present Timing: Constant Episodes Lasting: Hours Initial Severity: Moderate Current Severity: Moderate Location: Reports: Discrete Character: Reports: Aching Aggravating: Reports: Movements, Lifting, Bending, Walking Alleviating: Reports: Rest, Position Associated Signs and Symptoms: Reports: Fever, Flank pain. Denies: Swelling, Redness, Bruising, Weakness, Numbness, Tingling, Abdominal pain, Bladder incontinence, Bowel incontinence, Weight loss, Pain with weight bearing Related History: Reports: Similar episode TAD Risk Factors: Reports: None AAA Risk Factors: Reports: None Cauda Equina Risk Factors: Reports: None Epidural Abcess Risk Factors: Reports: None Related Surgical History: Reports: None Focal Tenderness: No Paraspinal Muscle Tenderness: No Paraspinal Muscle Spasm: No Scoliosis: No Lordosis: No Kyphosis: No Focal Weakness: Present: None Focal Sensory Loss: Present: None Differential Diagnoses: Strain, Sprain <ROMARIO ESPINOZA Filed: 02/13/17 18:30> Review of Systems - Review Of Systems Constitutional: Reports: Fever, Malaise Eyes: Reports: No symptoms Ears, Nose, Mouth, Throat: Reports: No symptoms Respiratory: Reports: No symptoms Cardiac: Reports: No symptoms GI: Reports: No symptoms : Reports: No symptoms Musculoskeletal: Reports: Back pain Skin: Reports: No symptoms Neurological: Reports: No symptoms Endocrine: Reports: No symptoms Hematologic/Lymphatic: Reports: No symptoms All Other Systems: Reviewed and Negative <ROMARIO ESPINOZA Last Filed: 02/13/17 18:30> Past Medical History - Past Medical History Previously Healthy: Yes Endocrine: Reports: Unknown Cardiovascular: Reports: Unknown Respiratory: Reports: Unknown Hematological: Reports: Unknown Gastrointestinal: Reports: Unknown Genitourinary: Reports: Unknown Neuro/Psych: Reports: Unknown Musculoskeletal: Reports: Unknown Cancer: Reports: Unknown Last Menstrual Period: 2 weeks ago - Surgical History General Surgical History: Reports: Unknown - Family History Family History: Reports: Unknown - Social History Smoking Status: Current every day smoker, Light tobacco smoker Hx Substance Use: No Alcohol Screening: None <OLGAROMARIO Last Filed: 02/13/17 18:30> Physical Exam - Physical Exam Appearance: Well-appearing, No pain distress, Well-nourished Eyes: JAYJAY, EOMI, Conjunctiva clear ENT: Ears normal, Nose normal, Oropharynx normal Respiratory: Airway patent, Breath sounds clear, Breath sounds equal, Respirations nonlabored Cardiovascular: RRR, Pulses normal, No rub, No murmur GI/: Soft, Nontender, No masses, Bowel sounds normal, No Organomegaly Musculoskeletal: Normal strength, ROM intact, No edema, No calf tenderness Skin: Warm, Dry, Normal color Neurological: Sensation intact, Motor intact, Reflexes intact, Cranial nerves intact, Alert, Oriented Psychiatric: Affect appropriate, Mood appropriate <OLGAROMARIO Last Filed: 02/13/17 18:30> Interpretation - Radiology Interpretation Radiology Interpretation By: Radiologist Radiology Results: Negative Exam Interpreted: CT Scan <NICOLE RODRIGUEZ Last Filed: 02/13/17 20:26> Physician Notification - Case Discussed Physician Notified: MICHAEL Time of Notification: 19:00 <OLGAROMARIO Last Filed: 02/13/17 18:30> Critical Care Note - Critical Care Note Total Time (mins): 0 <ROMARIO ESPINOZA Last Filed: 02/13/17 18:30> Course - Course Hematology/Chemistry: 02/13/17 18:37 02/13/17 18:37 <NICOLE RODRIGUEZ - Last Filed: 02/13/17 20:26> - Course Orders, Labs, Meds: Lab Review 02/13/17 02/13/17 02/13/17 17:50 18:37 18:37 WBC 15.55 H RBC 4.11 L Hgb 13.6 Hct 38.1 MCV 92.7 MCH 33.1 H MCHC 35.7 H RDW Coeff of Erik 11.9 Plt Count 352 Immature Gran % (Auto) 0.5 Neut % (Auto) 75.3 Lymph % (Auto) 20.1 Whitman % (Auto) 3.3 Eos % (Auto) 0.4 Baso % (Auto) 0.4 Immature Gran # (Auto) 0.1 Neut # 11.7 H Lymph # 3.1 Whitman # 0.5 Eos # 0.1 Baso # 0.1 Sodium 141 Potassium 3.3 L Chloride 106 Carbon Dioxide 24 Anion Gap 14.3 BUN 8 Creatinine 0.72 Estimated GFR (MDRD) 100.00 BUN/Creatinine Ratio 11.11 Glucose 124 H Calcium 10.0 Total Bilirubin 0.49 AST 22 ALT 19 Alkaline Phosphatase 91 Total Protein 7.2 Albumin 3.8 Globulin 3.4 Albumin/Globulin Ratio 1.12 Serum , Qual Urine Color Yellow Urine Clarity Clear Urine pH 7.0 Ur Specific Irving 1.020 Urine Protein Negative Urine Glucose (UA) Negative Urine Ketones Trace Urine Blood Negative Urine Nitrite Negative Urine Bilirubin 1+ Urine Urobilinogen 1.0 Ur Leukocyte Esterase Negative 02/13/17 18:37 WBC RBC Hgb Hct MCV MCH MCHC RDW Coeff of Erik Plt Count Immature Gran % (Auto) Neut % (Auto) Lymph % (Auto) Whitman % (Auto) Eos % (Auto) Baso % (Auto) Immature Gran # (Auto) Neut # Lymph # Whitman # Eos # Baso # Sodium Potassium Chloride Carbon Dioxide Anion Gap BUN Creatinine Estimated GFR (MDRD) BUN/Creatinine Ratio Glucose Calcium Total Bilirubin AST ALT Alkaline Phosphatase Total Protein Albumin Globulin Albumin/Globulin Ratio Serum , Qual Negative Urine Color Urine Clarity Urine pH Ur Specific Irving Urine Protein Urine Glucose (UA) Urine Ketones Urine Blood Urine Nitrite Urine Bilirubin Urine Urobilinogen Ur Leukocyte Esterase Orders Category Date Time Status CBC W/ AUTO DIFF Stat LAB 02/13/17 18:37 Completed COMPREHENSIVE METABOLIC PANEL Stat LAB 02/13/17 18:37 Completed SERUM Stat LAB 02/13/17 18:37 Completed URINALYSIS C & S IF INDICATED Stat LAB 02/13/17 17:50 Completed Hydrocodone Bit/Acetaminophen [Roby 10-325] MEDS 02/13/17 18:26 Discontinued 1 tab PO ONCE STA CT ABDOMEN/PELVIS WO CONTRAST Stat RADS 02/13/17 18:[address] LUMBAR SPINE W/O CONTRAST Stat RADS 02/13/17 18:25 Completed Medications Discontinued Medications Generic Name Dose Route Start Last Admin Trade Name Chase PRN Reason Stop Dose Admin Acetaminophen/Hydrocodone Bitart 1 tab 02/13/17 18:26 02/13/17 18:32 Roby 10-325 PO 02/13/17 18:27 1 tab ONCE STA Administration Vital Signs: Temp Pulse Resp BP Pulse Ox 02/13/17 17:42 100.6 F H 127 H 20 148/91 H 97 Departure <ROMARIO ESPINOZA - Last Filed: 02/13/17 18:30> - Departure Time of Disposition: 20:24 Pt referred to PMD for follow-up: No Disposition Discussed With: Patient <NICOLE RODRIGUEZ - Last Filed: 02/13/17 20:26> - Departure Disposition: HOME SELF-CARE Discharge Problem: Backache Low back pain Qualifiers: Chronicity: chronic Back pain laterality: bilateral Sciatica presence: without sciatica Qualified Code(s): M54.5 - Low back pain; G89.29 - Other chronic pain; G89.29 - Other chronic pain Instructions: Back Pain (ED) Condition: Stable Additional Instructions: Rest hot pack Prescriptions: Hydrocodone/Acetaminophen [Roby 10-325 Tablet] 1 each PO Q8HR #7 tablet Allergies/Adverse Reactions: Allergies No Known Allergies Allergy (Verified 02/13/17 17:49) Home Medications: Ambulatory Orders Ibuprofen 200 mg PO Q4H PRN 08/11/16 Naproxen Sodium [Aleve] 220 mg PO BID PRN 08/11/16 Hydrocodone/Acetaminophen [Roby 10-325 Tablet] 1 each PO Q8HR #7 tablet Pregabalin [Lyrica] 200 mg PO BID 02/13/17
[2017-02-13 18:39] LABS: BILIRUBIN,URINE 1+ (NEGATIVE); KETONES,URINE Trace (NEGATIVE); LEUKOCYTE ESTERASE ,URINE Negative (NEGATIVE); NITRITE,URINE Negative (NEGATIVE); PROTEIN,URINE Negative (NEGATIVE); URINE, BLOOD Negative (NEGATIVE)
[2017-02-13 18:40] LABS: BASOPHILS # (AUTO) 0.1 K/uL (0-0.2); BASOPHILS % (AUTO) 0.4 % (0.0-3.0); EOSINOPHILS # (AUTO) 0.1 K/ul (0.0-0.7); EOSINOPHILS % (AUTO) 0.4 % (0.0-7.0); HEMATOCRIT 38.1 % (37.0-47.0); HEMOGLOBIN 13.6 g/dl (12.0-16.0); IMMATURE GRANULOCYTE % (AUTO) 0.5 % (0.0-5.0); LYMPHOCYTES # (AUTO) 3.1 K/uL (0.60-3.4); LYMPHOCYTES % (AUTO) 20.1 (10.0-50.0); MEAN CORPUSCULAR HEMOGLOBIN 33.1 pg (27.0-31.0); MEAN CORPUSCULAR HGB CONC 35.7 (31.8-35.4); MEAN CORPUSCULAR VOLUME 92.7 fl (81.0-99.0); MONOCYTES # (AUTO) 0.5 K/uL (0.4-2.0); MONOCYTES % (AUTO) 3.3 (0-10); NEUTROPHILS # (AUTO) 11.7 K/ul (2.0-6.9); NEUTROPHILS % (AUTO) 75.3; PLATELET COUNT 352 10^3/uL (140-440); RED BLOOD COUNT 4.11 10^6/ul (4.20-5.40); WHITE BLOOD COUNT 15.55 K/ul (4.6-10.2)
[2017-02-13 18:40] LABS: ADD URINE MICROSCOPIC NO
[2017-02-13 18:53] LABS: SERUM PREGNANCY INTERNAL QC INTERNAL QC VALID
[2017-02-13 18:59] LABS: ALBUMIN 3.8 g/dL (3.4-5.0); ALBUMIN/GLOBULIN RATIO 1.12; ANION GAP 14.3; BILIRUBIN,TOTAL 0.49 mg/dL (0.00-1.20); BUN/CREATININE RATIO 11.11; CREATININE 0.72 mg/dL (0.60-1.30); POTASSIUM 3.3 mmol/L (3.5-5.10); TOTAL PROTEIN 7.2 g/dL (6.4-8.2)
--- NOTE | 2017-02-13 19:30 | CT ---
EXAM: CT of the abdomen and pelvis without contrast. HISTORY: Back pain. PROCEDURE: Contiguous axial CT images of the abdomen and pelvis without contrast with coronal and sa gittal reformats. FINDINGS: The liver, gallbladder, pancreas, spleen, adrenal glands and kidneys are normal in appearan ce. No nephrolithiasis, ureterolithiasis or hydronephrosis. The abdominal aorta is normal in appearan ce. The visualized loops of bowel and appendix are normal in appearance. No free fluid or free air i n the abdomen or pelvis. The bladder is adequately filled with no abnormality identified. The uterus is unremarkable. The bones and soft tissues are unremarkable. Impression: Negative CT abdomen and pelvis.
--- NOTE | 2017-02-13 19:34 | CT ---
EXAM: CT scan of the lumbar spine without contrast HISTORY: Back pain and same TECHNIQUE: Helical imaging of the lumbar spine was performed without contrast. Sagittal and coronal reconstructions and axial images were provided for interpretation. Comparison MRI of the lumbar spine dated 11/01/2016. FINDINGS: There is no evidence of acute compression fracture. The paraspinal soft tissues are sherif l. No acute fractures are seen within the sacrum. Five lumbar-type vertebral bodies are identified. Segmental analysis: T12-L1: The central canal and neural foramina appear patent. L1-L2: The central canal and neural foramina appear patent. L2-L3: The central canal and neural foramina appear patent. L3-L4: The central canal and neural foramina appear patent. L4-L5: There is mild disc bulge with a superimposed small central broad-based disc protrusion measur ing 3.6 mm AP causing mild ventral indentation on the thecal sac and causing mild narrowing of the ce ntral canal. The lateral recesses and neural foramina appear adequately patent. L5-S1: There is disc bulge with a superimposed broad-based right paracentral disc protrusion at this level measuring approximately 4 mm AP, contacting the right S1 nerve root and causing mild narrowing of the right lateral recess. The left lateral recess and neural foramina appear patent. IMPRESSION: No evidence of acute compression fracture. There is disc bulge with a superimposed small central broad-based disc protrusion seen at L4-L5 measu ring 3.6 mm AP causing mild ventral indentation on the thecal sac. The findings appear to be similar when compared to previous study. There is a right paracentral broad-based disc protrusion measuring 4 mm AP seen at L5-S1 contacting t he right S1 nerve root and causing narrowing of the right lateral recess. The findings appear to be s imilar when compared to previous study. There is no severe central canal stenosis.
== END 2017-02-13 20:46 | disposition home or self-care (01) ==
LOC: ED 17:42
DX: M54.5 Low back pain (principal); G89.29 Other chronic pain; F17.210 Nicotine dependence, cigarettes, uncomplicated
CPT/HCPCS: 36415; 80053; 81001; 84703; 85025; 99283

== ENCOUNTER 2017-02-17 13:05 | Emergency (ER) ==
[2017-02-17 13:13] VITALS: BP 137/77; TEMP 99; BMI 31.1
[2017-02-17] MEDS ORDERED: NORFLEX IM STA (13:27)
--- NOTE | 2017-02-17 13:30 | ED.PDOC ---
General ED Provider: Dr. NICOLE RODRIGUEZ Chief Complaint: Back Pain Stated Complaint: Came for the lower back pain, right side, radiates to right leg. was here on 02-13 CT scan done. Patient has chronic back pain Time Seen by Physician: 13:28 Mode of Arrival: Walk-In Information Source: Patient Primary Care Provider: MORRIS CANNON Nursing and Triage Documentation Reviewed and Agree: Yes Musculoskeletal Complaint Exam - Back Pain Complaint/Exam Mechanism of Injury: Reports: No known trauma Symptoms Are: Still present Timing: Constant Episodes Lasting: Hours Initial Severity: Moderate Current Severity: Severe Location: Reports: Radiating Character: Reports: Dull, Aching Aggravating: Reports: Movements, Lifting, Bending, Walking Alleviating: Reports: None Associated Signs and Symptoms: Denies: Swelling, Redness, Bruising, Fever, Weakness, Numbness, Tingling, Abdominal pain, Flank pain, Bladder incontinence, Bowel incontinence, Weight loss, Pain with weight bearing Related History: Reports: Similar episode TAD Risk Factors: Reports: None AAA Risk Factors: Reports: None Cauda Equina Risk Factors: Reports: None Epidural Abcess Risk Factors: Reports: None Related Surgical History: Reports: None Focal Tenderness: Yes Paraspinal Muscle Tenderness: Yes Paraspinal Muscle Spasm: Yes Scoliosis: No Lordosis: No Kyphosis: No SLR Test: Right Positive Focal Weakness: Present: None Focal Sensory Loss: Present: None Gait: Present: Normal Differential Diagnoses: Herniated Disk, Strain Review of Systems - Review Of Systems Constitutional: Reports: No symptoms Eyes: Reports: No symptoms Ears, Nose, Mouth, Throat: Reports: No symptoms Respiratory: Reports: No symptoms Cardiac: Reports: No symptoms GI: Reports: No symptoms : Reports: No symptoms Musculoskeletal: Reports: Back pain Skin: Reports: No symptoms Neurological: Reports: No symptoms Endocrine: Reports: No symptoms Hematologic/Lymphatic: Reports: No symptoms All Other Systems: Reviewed and Negative Past Medical History - Past Medical History Previously Healthy: Yes Endocrine: Reports: Unknown Cardiovascular: Reports: Unknown Respiratory: Reports: Unknown Hematological: Reports: Unknown Gastrointestinal: Reports: Unknown Genitourinary: Reports: Unknown Neuro/Psych: Reports: Unknown Musculoskeletal: Reports: Unknown Cancer: Reports: Unknown Last Menstrual Period: 3 weeks - Surgical History General Surgical History: Reports: Unknown - Family History Family History: Reports: Unknown - Social History Smoking Status: Current some day smoker Smoking Cessation Counseling Time: > 3 min - 10 min Hx Substance Use: No Alcohol Screening: Occasionally - Immunizations Tetanus Shot up to Date: Yes Physical Exam - Physical Exam Appearance: Ill-appearing, Obese Pain Distress: Moderate Eyes: JAYJAY, EOMI, Conjunctiva clear ENT: Ears normal, Nose normal, Oropharynx normal Respiratory: Airway patent, Breath sounds clear, Breath sounds equal, Respirations nonlabored Cardiovascular: RRR, Pulses normal, No rub, No murmur GI/: Soft, Nontender, No masses, Bowel sounds normal, No Organomegaly Musculoskeletal: Normal strength, ROM intact, No edema, No calf tenderness Skin: Warm, Dry, Normal color Neurological: Sensation intact, Motor intact, Reflexes intact, Cranial nerves intact, Alert, Oriented Psychiatric: Affect appropriate, Mood appropriate Critical Care Note - Critical Care Note Total Time (mins): 0 Course - Course Orders, Labs, Meds: Orders Category Date Time Status Orphenadrine Citrate [Norflex] MEDS 02/17/17 13:27 Stat 60 mg IM ONCE STA Medications Generic Name Dose Route Start Last Admin Trade Name Freq PRN Reason Stop Dose Admin Orphenadrine Citrate 60 mg 02/17/17 13:27 Norflex IM 02/17/17 13:28 ONCE STA Vital Signs: Temp Pulse Resp BP Pulse Ox 02/17/17 13:07 99 F 77 20 137/77 96 Departure - Departure Time of Disposition: 13:31 Disposition: HOME SELF-CARE Discharge Problem: Low back pain Qualifiers: Chronicity: chronic Back pain laterality: right Sciatica presence: with sciatica Sciatica laterality: sciatica of right side Qualified Code(s): M54.41 - Lumbago with sciatica, right side; G89.29 - Other chronic pain; G89.29 - Other chronic pain Instructions: Lumbar Radiculopathy (ED) Condition: Good Pt referred to PMD for follow-up: Yes Additional Instructions: Rest Hot pack Prescriptions: Cyclobenzaprine HCl [Flexeril] 5 mg PO BID #14 tablet Prednisone 10 mg PO BIDWM #14 tablet Allergies/Adverse Reactions: Allergies No Known Allergies Allergy (Verified 02/17/17 13:12) Home Medications: Ambulatory Orders Ibuprofen 200 mg PO Q4H PRN 08/11/16 Hydrocodone/Acetaminophen [[place]amber[place] 10-325 Tablet] 1 each PO Q8HR #7 tablet Cyclobenzaprine HCl [Flexeril] 5 mg PO BID #14 tablet 02/17/17 Prednisone 10 mg PO BIDWM #14 tablet 02/17/17 Disposition Discussed With: Patient
== END 2017-02-17 14:00 | disposition home or self-care (01) ==
LOC: ED 13:05
DX: M54.41 Lumbago with sciatica, right side (principal); G89.29 Other chronic pain; F17.210 Nicotine dependence, cigarettes, uncomplicated
CPT/HCPCS: 96372; 99283

== ENCOUNTER 2017-02-18 16:51 | Emergency (ER) ==
[2017-02-18 16:55] VITALS: BP 142/74; TEMP 98.8; BMI 31.1
[2017-02-18] MEDS ORDERED: VALIUM SYRINGE IM STA (17:29)
[2017-02-18] MEDS ORDERED: ZOFRAN 4 MG/2 ML IM STA (17:29)
[2017-02-18] MEDS ORDERED: DILAUDID 2 MG/ML SYRINGE IM STA (17:29)
[2017-02-18] MEDS ORDERED: TORADOL IM STA (17:29)
--- NOTE | 2017-02-18 17:33 | ED.PDOC ---
General ED Provider: Dr. ROMARIO ESPINOZA Chief Complaint: Back Pain Stated Complaint: low back pain Time Seen by Physician: 17:00 Mode of Arrival: Wheelchair Information Source: Patient Exam Limitations: No limitations Primary Care Provider: MORRIS CANNON Nursing and Triage Documentation Reviewed and Agree: Yes Musculoskeletal Complaint Exam - Back Pain Complaint/Exam Mechanism of Injury: Reports: No known trauma Onset/Duration: 1 week Symptoms Are: Still present Timing: Intermittent Episodes Lasting: Hours Initial Severity: Moderate Current Severity: Moderate Character: Reports: Throbbing, Spasmodic, Stiffness Aggravating: Reports: Lifting, Bending, Walking Alleviating: Reports: Rest, Position Associated Signs and Symptoms: Denies: Swelling, Redness, Bruising, Fever, Weakness, Numbness, Tingling, Abdominal pain, Flank pain, Bladder incontinence, Bowel incontinence, Weight loss, Pain with weight bearing Related History: Reports: Similar episode TAD Risk Factors: Reports: None Cauda Equina Risk Factors: Reports: None Epidural Abcess Risk Factors: Reports: None Related Surgical History: Reports: None Focal Tenderness: No Paraspinal Muscle Spasm: No Scoliosis: No Lordosis: No Kyphosis: No SLR Test: Right Positive, Left Negative Hip Motion Testing Pain: Right Negative, Left Negative Focal Sensory Loss: Present: None Gait: Present: Abnormal Differential Diagnoses: Strain, Sprain Review of Systems - Review Of Systems Constitutional: Reports: No symptoms Eyes: Reports: No symptoms Ears, Nose, Mouth, Throat: Reports: No symptoms Respiratory: Reports: No symptoms Cardiac: Reports: No symptoms GI: Reports: No symptoms : Reports: No symptoms Musculoskeletal: Reports: Back pain Skin: Reports: No symptoms Neurological: Reports: No symptoms Endocrine: Reports: No symptoms Hematologic/Lymphatic: Reports: No symptoms All Other Systems: Reviewed and Negative Past Medical History - Past Medical History Previously Healthy: Yes Endocrine: Reports: Unknown Cardiovascular: Reports: Unknown Respiratory: Reports: Unknown Hematological: Reports: Unknown Gastrointestinal: Reports: Unknown Genitourinary: Reports: Unknown Neuro/Psych: Reports: Unknown Musculoskeletal: Reports: Unknown Cancer: Reports: Unknown Last Menstrual Period: 3.5 weeks ago - Surgical History General Surgical History: Reports: Unknown - Family History Family History: Reports: Unknown - Social History Smoking Status: Current every day smoker, Light tobacco smoker Hx Substance Use: No Alcohol Screening: None Physical Exam - Physical Exam Appearance: Well-appearing, No pain distress, Well-nourished Eyes: JAYJAY, EOMI, Conjunctiva clear ENT: Ears normal, Nose normal, Oropharynx normal Respiratory: Airway patent, Breath sounds clear, Breath sounds equal, Respirations nonlabored Cardiovascular: RRR, Pulses normal, No rub, No murmur GI/: Soft, Nontender, No masses, Bowel sounds normal, No Organomegaly Musculoskeletal: Normal strength, ROM intact, No edema, No calf tenderness Skin: Warm, Dry, Normal color Neurological: Sensation intact, Motor intact, Reflexes intact, Cranial nerves intact, Alert, Oriented Psychiatric: Affect appropriate, Mood appropriate Critical Care Note - Critical Care Note Total Time (mins): 0 Course - Course Orders, Labs, Meds: Orders Category Date Time Status Diazepam Syringe [Valium Syringe] MEDS 02/18/17 17:29 Stat 2 mg IM ONCE STA Hydromorphone HCl/Pf [Dilaudid 2 mg/ml Syringe] MEDS 02/18/17 17:29 Stat 0.5 mg IM ONCE STA Ketorolac Tromethamine [Toradol] MEDS 02/18/17 17:29 Stat 30 mg IM ONCE STA Ondansetron HCl/Pf [Zofran 4 mg/2 ml] MEDS 02/18/17 17:29 Stat 4 mg IM ONCE STA Medications Discontinued Medications Generic Name Dose Route Start Last Admin Trade Name Chase PRN Reason Stop Dose Admin Diazepam 2 mg 02/18/17 17:29 Valium Syringe IM 02/18/17 17:30 ONCE STA Hydromorphone HCl 0.5 mg 02/18/17 17:29 Dilaudid 2 Mg/Ml Syringe IM 02/18/17 17:30 ONCE STA Ketorolac Tromethamine 30 mg 02/18/17 17:29 Toradol IM 02/18/17 17:30 ONCE STA Ondansetron HCl 4 mg 02/18/17 17:29 Zofran 4 Mg/2 Ml IM 02/18/17 17:30 ONCE STA Vital Signs: Temp Pulse Resp BP Pulse Ox 02/18/17 16:52 98.8 F 99 H 20 142/74 H 97 Departure - Departure Time of Disposition: 17:32 Disposition: HOME SELF-CARE Discharge Problem: Low back pain Qualifiers: Chronicity: chronic Back pain laterality: midline Sciatica presence: with sciatica Sciatica laterality: sciatica of right side Qualified Code(s): M54.41 - Lumbago with sciatica, right side; G89.29 - Other chronic pain; G89.29 - Other chronic pain Instructions: Acute Low Back Pain (ED) Condition: Good Pt referred to PMD for follow-up: Yes Additional Instructions: Please call your Family Physician as soon as possible to schedule a follow-up appointment. Prescriptions: Hydrocodone/Acetaminophen [Garrison 10-325 Tablet] 1 each PO Q8HR #7 tablet Allergies/Adverse Reactions: Allergies No Known Allergies Allergy (Verified 02/18/17 16:55) Home Medications: Ambulatory Orders Ibuprofen 200 mg PO Q4H PRN 08/11/16 Cyclobenzaprine HCl [Flexeril] 5 mg PO BID #14 tablet 02/17/17 Prednisone 10 mg PO BIDWM #14 tablet 02/17/17 Hydrocodone/Acetaminophen [Garrison 10-325 Tablet] 1 each PO Q8HR #7 tablet
== END 2017-02-18 18:31 | disposition home or self-care (01) ==
LOC: ED 16:51
DX: M54.41 Lumbago with sciatica, right side (principal); G89.29 Other chronic pain; F17.210 Nicotine dependence, cigarettes, uncomplicated
CPT/HCPCS: 96372; 99283

== ENCOUNTER 2017-03-15 16:17 | Emergency (ER) ==
[2017-03-15 16:22] VITALS: BP 136/87; TEMP 97.4; BMI 30.6
[2017-03-15] MEDS ORDERED: LOMOTIL PO STA (16:31)
--- NOTE | 2017-03-15 18:06 | ED.PDOC ---
General ED Provider: Dr. ROMARIO ESPINOZA Chief Complaint: Diarrhea Stated Complaint: abdominal pain Time Seen by Physician: 16:30 Mode of Arrival: Walk-In Information Source: Patient Exam Limitations: No limitations Primary Care Provider: MORRIS CANNON Nursing and Triage Documentation Reviewed and Agree: Yes Reviewed sepsis parameters & appropriate labs ordered?: Yes (nursing staff wwas present at all times ) System Inflammatory Response Syndrome: Not Applicable Sepsis Protocol: For patient's 13 years and over: Temp is 96.8 and below OR 101 and greater Pulse >90 BPM Resp >20/minute Acutely Altered Mental Status Are patient's symptoms suggestive of a new infection, such as: -Pneumonia -Skin, Soft Tissue -Endocarditis -UTI -Bone, Joint Infection -Implantable Device -Acute Abdominal Infection -Wound Infection -Meningitis -Blood Stream Catheter Infection -Unknown GI Complaint Exam - Vomiting/Diarrhea Complaint/Exam Onset/Duration: 2 days Symptoms Are: Resolved Episodes of Vomiting over last 24 Hours: 0 Episodes of Diarrhea Over Last 24 Hours: 5 Initial Severity: Mild Current Severity: None Character of Vomiting: Reports: Non-bilious Aggravating: Reports: None Alleviating: Reports: None Associated Signs and Symptoms: Reports: Abdominal pain. Denies: Dizziness, Light-headedness, Melena, Hematemesis, Fever, Cramping Related History: Reports: Similar episode Use of Oral Contraceptives: No Use of Depoprovera: No Compliant With Contraceptive Use: No Non-GI Risk Factors: Reports: None Surgical Obstruction Risk Factors: Reports: None Related Surgical History: Reports: None Abdominal Findings: Present: None Differential Diagnoses: Viral Gastroenteritis, Bacterial Gastroenteritis Review of Systems - Review Of Systems Constitutional: Reports: No symptoms Eyes: Reports: No symptoms Ears, Nose, Mouth, Throat: Reports: No symptoms Respiratory: Reports: No symptoms Cardiac: Reports: No symptoms GI: Reports: Abdominal pain, Diarrhea : Reports: No symptoms Musculoskeletal: Reports: No symptoms Skin: Reports: No symptoms Neurological: Reports: No symptoms Endocrine: Reports: No symptoms Hematologic/Lymphatic: Reports: No symptoms All Other Systems: Reviewed and Negative Past Medical History - Past Medical History Previously Healthy: Yes Endocrine: Reports: Unknown Cardiovascular: Reports: Unknown Respiratory: Reports: Unknown Hematological: Reports: Unknown Gastrointestinal: Reports: Unknown Genitourinary: Reports: Unknown Neuro/Psych: Reports: Unknown Musculoskeletal: Reports: Unknown Cancer: Reports: Unknown Last Menstrual Period: 2 weeks ago - Surgical History General Surgical History: Reports: Unknown - Family History Family History: Reports: Unknown - Social History Smoking Status: Current every day smoker, Light tobacco smoker Hx Substance Use: No Alcohol Screening: None Physical Exam - Physical Exam Appearance: Well-appearing, No pain distress, Well-nourished Eyes: JAYJAY, EOMI, Conjunctiva clear ENT: Ears normal, Nose normal, Oropharynx normal Respiratory: Airway patent, Breath sounds clear, Breath sounds equal, Respirations nonlabored Cardiovascular: RRR, Pulses normal, No rub, No murmur GI/: Soft, Nontender, No masses, Bowel sounds normal, No Organomegaly Musculoskeletal: Normal strength, ROM intact, No edema, No calf tenderness Skin: Warm, Dry, Normal color Neurological: Sensation intact, Motor intact, Reflexes intact, Cranial nerves intact, Alert, Oriented Psychiatric: Affect appropriate, Mood appropriate Interpretation - Radiology Interpretation Radiology Interpretation By: Radiologist Radiology Results: No acute changes Critical Care Note - Critical Care Note Total Time (mins): 0 Course - Course Hematology/Chemistry: 03/15/17 16:39 03/15/17 16:39 Orders, Labs, Meds: Lab Review 03/15/17 03/15/17 03/15/17 16:30 16:35 16:39 WBC 6.33 RBC 4.23 Hgb 14.0 Hct 39.3 MCV 92.9 MCH 33.1 H MCHC 35.6 H RDW Coeff of Erik 11.4 L Plt Count 269 Immature Gran % (Auto) 0.3 Neut % (Auto) 50.0 Lymph % (Auto) 40.9 [place] % (Auto) 7.7 Eos % (Auto) 0.8 Baso % (Auto) 0.3 Immature Gran # (Auto) 0.0 Neut # 3.2 Lymph # 2.6 [place] # 0.5 Eos # 0.1 Baso # 0.0 Sodium Potassium Chloride Carbon Dioxide Anion Gap BUN Creatinine Estimated GFR (MDRD) BUN/Creatinine Ratio Glucose Calcium Total Bilirubin AST ALT Alkaline Phosphatase Total Protein Albumin Globulin Albumin/Globulin Ratio Serum , Qual Negative Influenza A (Rapid) Negative Influenza B (Rapid) Negative 03/15/17 16:39 WBC RBC Hgb Hct MCV MCH MCHC RDW Coeff of Erik Plt Count Immature Gran % (Auto) Neut % (Auto) Lymph % (Auto) [place] % (Auto) Eos % (Auto) Baso % (Auto) Immature Gran # (Auto) Neut # Lymph # [place] # Eos # Baso # Sodium 143 Potassium 3.5 Chloride 108 H Carbon Dioxide 23 Anion Gap 15.5 BUN 7 Creatinine 0.70 Estimated GFR (MDRD) 104.00 BUN/Creatinine Ratio 10.00 Glucose 99 Calcium 9.4 Total Bilirubin 0.5 AST 148 H ALT 153 H Alkaline Phosphatase 72 Total Protein 7.4 Albumin 3.7 Globulin 3.7 Albumin/Globulin Ratio 1.00 Serum , Qual Influenza A (Rapid) Influenza B (Rapid) Orders Category Date Time Status CBC W/ AUTO DIFF Stat LAB 03/15/17 16:28 Ordered COMPREHENSIVE METABOLIC PANEL Stat LAB 03/15/17 16:28 Ordered MOLECULAR GROUP A STREP Stat LAB 03/15/17 16:30 Results RAPID FLU A/B Stat LAB 03/15/17 16:28 Uncollected SERUM Stat LAB 03/15/17 Ordered STREP SCREEN Stat LAB 03/15/17 16:28 Uncollected URINALYSIS C & S IF INDICATED Stat LAB 03/15/17 16:28 Uncollected Diphenoxylate HCl/Atropine [Lomotil] MEDS 03/15/17 16:31 Stat 2 tab PO ONCE STA CT ABDOMEN/PELVIS WO CONTRAST Stat RADS 03/15/17 16:28 Ordered Medications Discontinued Medications Generic Name Dose Route Start Last Admin Trade Name Freq PRN Reason Stop Dose Admin Diphenoxylate HCl/Atropine 2 tab 03/15/17 16:31 03/15/17 16:45 Lomotil PO 03/15/17 16:32 2 tab ONCE STA Administration Vital Signs: Temp Pulse Resp BP Pulse Ox 03/15/17 16:17 97.4 F L 99 H 16 136/87 96 Departure - Departure Time of Disposition: 19:00 (deanna present when i discussed labs and discharge instructions) Disposition: HOME SELF-CARE Discharge Problem: Diarrhea Abdominal pain Qualifiers: Abdominal location: generalized Qualified Code(s): R10.84 - Generalized abdominal pain Instructions: Acute Diarrhea (ED), Acute Abdominal Pain (ED) Condition: Good Pt referred to PMD for follow-up: Yes Additional Instructions: Please call your Family Physician as soon as possible to schedule a follow-up appointment. Allergies/Adverse Reactions: Allergies No Known Allergies Allergy (Verified 03/15/17 16:24) Home Medications: Ambulatory Orders Ibuprofen 200 mg PO Q4H PRN 08/11/16 Azithromycin [Zithromax] 250 mg PO DAILY 03/15/17 Disposition Discussed With: Patient
--- NOTE | 2017-03-15 18:25 | CT ---
EXAM: CT scan abdomen pelvis without contrast HISTORY: Abdominal pain with nausea vomiting diarrhea COMPARISON: CT scan abdomen pelvis 02/13/2017 FINDINGS: Contiguous axial images obtained from lung bases to the symphysis pubis without contrast u tilizing 3-mm collimation. Sagittal and coronal reconstructions were imaged and reviewed.. There is mild dependent atelectasis right lung base. The gallbladder is fluid filled without cholelithiasis. Fatty infiltration is noted throughout the liver. The pancreas spleen and adrenal glands have norm al unenhanced CT appearance. The kidneys are morphologically normal. The abdominal aorta is normal in course and caliber. There is no free fluid or inflammatory changes. There is no CT evidence of a ppendicitis. There is a small umbilical hernia containing only fat. . The uterus and left adnexa a re unremarkable. There is a 2.4 cm right adnexal cyst. IMPRESSION: No acute intra-abdominal findings. 2.4 cm right adnexal cyst without free fluid. Small umbilical hernia containing only fat
== END 2017-03-15 18:46 | disposition home or self-care (01) ==
LOC: ED 16:17
DX: R19.7 Diarrhea, unspecified (principal); R10.84 Generalized abdominal pain; N83.201 Unspecified ovarian cyst, right side; F17.210 Nicotine dependence, cigarettes, uncomplicated
CPT/HCPCS: 36415; 80053; 84703; 85025; 87502; 87651; 87880; 99283

== ENCOUNTER 2017-03-20 08:46 | Emergency (ER) ==
[2017-03-20 08:51] VITALS: BP 153/81; TEMP 97.1; BMI 30.2
--- NOTE | 2017-03-20 09:19 | ED.PDOC ---
General ED Provider: Dr. ROMARIO ESPINOZA Chief Complaint: Back Pain Stated Complaint: back pain lumbar Time Seen by Physician: 09:00 (fall 1 day ago no neck or upper back pain ) Mode of Arrival: Walk-In Information Source: Patient Exam Limitations: No limitations Primary Care Provider: MORRIS CANNON Referred to ED by: Other (no head injury) Nursing and Triage Documentation Reviewed and Agree: Yes Reviewed sepsis parameters & appropriate labs ordered?: No (this pt was seen with too pizano Rn at all times injury limited to lower ) System Inflammatory Response Syndrome: Not Applicable Sepsis Protocol: For patient's 13 years and over: Temp is 96.8 and below OR 101 and greater Pulse >90 BPM Resp >20/minute Acutely Altered Mental Status Are patient's symptoms suggestive of a new infection, such as: -Pneumonia -Skin, Soft Tissue -Endocarditis -UTI -Bone, Joint Infection -Implantable Device -Acute Abdominal Infection -Wound Infection -Meningitis -Blood Stream Catheter Infection -Unknown Trauma/Injury Complaint Exam - Trauma Complaint/Exam Location of Pain or Injury: Reports: Back (lumbar), Other (injury limited to lower back) Mechanism of Injury: Reports: Fall Onset/Duration: 1 day Symptoms Are: Still present Timing of Treatment: Hours Initial Severity: Mild Current Severity: Mild Character: Reports: Aching Aggravating: Reports: Movement Alleviating: Reports: Rest Associated Signs and Symptoms: Denies: LOC, Confusion, Memory loss, Lethargy, Vomiting, Bleeding, Bruising, Swelling, Extremity disuse, Painful respiration, Hoarseness, Dysphagia, Hemoptysis, Significant blood loss Related History: Reports: Similar episode : No Penetrating Injury Risk Factors: Reports: None Nexus Low Risk Criteria: No post-midline CS tender, No evidence of intoxicat., No Altered LOC, No focal neuro deficit, No distracting injuries Immobilization Removed Post Exam: No Glascow Coma Scale (see protocol): 15 Trauma Findings: Absent: [place] eyes, Hemotympanum, Nasal deformity, Dental tenderness, Neck tenderness Skin Findings: Present: Normal findings Differential Diagnoses: Fracture, Sprain, Strain Review of Systems - Review Of Systems Constitutional: Reports: No symptoms Eyes: Reports: No symptoms Ears, Nose, Mouth, Throat: Reports: No symptoms Respiratory: Reports: No symptoms Cardiac: Reports: No symptoms GI: Reports: No symptoms : Reports: No symptoms Musculoskeletal: Reports: Back pain. Denies: Joint pain, Neck pain Skin: Reports: No symptoms Neurological: Reports: No symptoms Endocrine: Reports: No symptoms Hematologic/Lymphatic: Reports: No symptoms All Other Systems: Reviewed and Negative Past Medical History - Past Medical History Previously Healthy: Yes Endocrine: Reports: Unknown Cardiovascular: Reports: Unknown Respiratory: Reports: Unknown Hematological: Reports: Unknown Gastrointestinal: Reports: Unknown Genitourinary: Reports: Unknown Neuro/Psych: Reports: Unknown Musculoskeletal: Reports: Unknown Cancer: Reports: Unknown Last Menstrual Period: 2 weeks ago - Surgical History General Surgical History: Reports: Unknown - Family History Family History: Reports: Unknown - Social History Smoking Status: Current every day smoker, Light tobacco smoker Hx Substance Use: No Alcohol Screening: None Physical Exam - Physical Exam Appearance: Well-appearing, No pain distress, Well-nourished Eyes: JAYJAY, EOMI, Conjunctiva clear ENT: Ears normal, Nose normal, Oropharynx normal Respiratory: Airway patent, Breath sounds clear, Breath sounds equal, Respirations nonlabored Cardiovascular: RRR, Pulses normal, No rub, No murmur GI/: Soft, Nontender, No masses, Bowel sounds normal, No Organomegaly Musculoskeletal: Normal strength, ROM intact, No edema, No calf tenderness Skin: Warm, Dry, Normal color Neurological: Sensation intact, Motor intact, Reflexes intact, Cranial nerves intact, Alert, Oriented Psychiatric: Affect appropriate, Mood appropriate Critical Care Note - Critical Care Note Total Time (mins): 0 Course - Course Orders, Labs, Meds: Orders Category Date Time Status SERUM Stat LAB 03/20/[address] LUMBAR SPINE W/O CONTRAST Stat RADS 03/20/17 09:13 Ordered Vital Signs: Temp Pulse Resp BP Pulse Ox 03/20/17 08:47 97.1 F L 78 16 153/81 H 98 Departure - Departure Time of Disposition: 11:00 Disposition: HOME SELF-CARE Discharge Problem: Backache Low back pain Qualifiers: Chronicity: unspecified Back pain laterality: midline Sciatica presence: with sciatica Instructions: Low Back Strain (ED), Low Back Strain (GEN), Flank Pain (ED), Acute Low Back Pain (ED) Condition: Good Pt referred to PMD for follow-up: Yes Allergies/Adverse Reactions: Allergies No Known Allergies Allergy (Verified 03/20/17 08:52) Home Medications: Ambulatory Orders Ibuprofen 200 mg PO Q4H PRN 08/11/16 Duloxetine HCl [Cymbalta] 30 mg PO DAILY 03/20/17
[2017-03-20] MEDS ORDERED: TORADOL IM STA (10:58)
--- NOTE | 2017-03-20 11:00 | CT ---
Exam: CT of the lumbar spine without intravenous contrast. Comparison: 02/13/2017. Reason for exam: Fall. FINDINGS: No acute fracture, listhesis. The vertebral body heights are well maintained. Discogenic disease is seen with a large disc bulge at L5-S1. T12-L1: No significant central canal or foraminal narrowing. L1-L2: No significant central canal or foraminal narrowing. L2-L3: No significant central canal or foraminal narrowing. L3-L4: No significant central canal or foraminal narrowing. L4-L5: Broad-based disc bulge with impression on the thecal sac and mild to moderate central canal a nd foraminal narrowing. L5-S1: Large broad-based disc bulge with impression on the thecal sac and moderate central canal and foraminal narrowing. Impression: 1. 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 If clinical con cern exists, MRI may be performed for further characterization. 2. No acute fracture is seen in the lumbar spine. Imaging findings appear similar when compared to the previous exam.
== END 2017-03-20 11:29 | disposition home or self-care (01) ==
LOC: ED 08:46
DX: M54.40 Lumbago with sciatica, unspecified side (principal); W19.XXXA Unspecified fall, initial encounter; F17.210 Nicotine dependence, cigarettes, uncomplicated
CPT/HCPCS: 36415; 84703; 96372; 99282

== ENCOUNTER 2017-04-12 19:10 | Emergency (ER) ==
[2017-04-12 19:16] VITALS: BP 166/87; TEMP 99.1; BMI 30.7
--- NOTE | 2017-04-12 19:23 | ED.PDOC ---
General ED Provider: Dr. MORRIS CANNON-ER Chief Complaint: Respiratory Complaint Stated Complaint: jean carlos got sinus pain and pressure with green drainage Time Seen by Physician: 19:21 Mode of Arrival: Walk-In Information Source: Patient Exam Limitations: No limitations Primary Care Provider: MORRIS CANNON Nursing and Triage Documentation Reviewed and Agree: Yes Reviewed sepsis parameters & appropriate labs ordered?: Yes System Inflammatory Response Syndrome: Not Applicable Sepsis Protocol: For patient's 13 years and over: Temp is 96.8 and below OR 101 and greater Pulse >90 BPM Resp >20/minute Acutely Altered Mental Status Are patient's symptoms suggestive of a new infection, such as: -Pneumonia -Skin, Soft Tissue -Endocarditis -UTI -Bone, Joint Infection -Implantable Device -Acute Abdominal Infection -Wound Infection -Meningitis -Blood Stream Catheter Infection -Unknown Respiratory Complaint Exam - Respiratory Complaint/Exam Onset/Duration: 3 days Symptoms Are: Still present Timing: Constant Initial Severity: Mild Current Severity: Mild Character: Reports: Non-productive cough Aggravating: Reports: URI Alleviating: Reports: Spontaneous resolution Associated Signs and Symptoms: Reports: URI, Nasal congestion, Sore throat. Denies: Rapid breathing, Dyspnea, Fever, Chills, Chest pain, Pleuritic chest pain, Wheezing, Hemoptysis, Dizziness, Calf pain, Calf swelling, Edema, Hoarseness, Sinus discomfort, Vomiting, Weight loss, Decreased oral intake, Increased thirst, Increased appetite, Increased urination History of Healthcare-Acquired Pneumonia: No Related Surgical History: Reports: None Pulmonary Embolism Risk Factors: None Tuberculosis Risk Factors: Reports: None Status Asthmaticus Risk Factors: Reports: None Home Oxygen Use: No Recent Stress Test: No Current Antibiotic Use: No Current Asthma Medication Use: No Respiratory Distress: None Inadequate Respiratory Effort: No Dysphagia Present: No Stridor Present: No JVD Present: No Accessory Muscle Use: No Retractions: Not Present Diminished Breath Sounds: No Sinus Tenderness: Frontal, Maxillary Grunting Respirations: No Kussmaul Respirations: No Differential Diagnoses: Sinusitis Review of Systems - Review Of Systems Constitutional: Reports: Fever Eyes: Reports: No symptoms Ears, Nose, Mouth, Throat: Reports: Nose discharge Respiratory: Reports: Cough Cardiac: Reports: No symptoms GI: Reports: No symptoms : Reports: No symptoms Musculoskeletal: Reports: No symptoms Skin: Reports: No symptoms Neurological: Reports: No symptoms Endocrine: Reports: No symptoms Hematologic/Lymphatic: Reports: No symptoms All Other Systems: Reviewed and Negative Past Medical History - Past Medical History Previously Healthy: Yes Endocrine: Reports: Unknown Cardiovascular: Reports: Unknown Respiratory: Reports: Unknown Hematological: Reports: Unknown Gastrointestinal: Reports: Unknown Genitourinary: Reports: Unknown Neuro/Psych: Reports: Unknown Musculoskeletal: Reports: Unknown Cancer: Reports: Unknown Last Menstrual Period: Finished 3 days ago - Surgical History General Surgical History: Reports: Unknown - Family History Family History: Reports: Unknown - Social History Smoking Status: Current every day smoker, Light tobacco smoker Hx Substance Use: No Alcohol Screening: None Physical Exam - Physical Exam Appearance: Well-appearing, No pain distress, Well-nourished Eyes: JAYJAY, EOMI, Conjunctiva clear ENT: Rhinorrhea Neck: Supple Respiratory: Airway patent, Breath sounds clear, Breath sounds equal, Respirations nonlabored Cardiovascular: RRR GI/: Soft, Nontender, No masses, Bowel sounds normal, No Organomegaly Musculoskeletal: Normal strength, ROM intact, No edema, No calf tenderness Skin: Warm, Dry, Normal color Neurological: Sensation intact, Motor intact, Reflexes intact, Cranial nerves intact, Alert, Oriented Psychiatric: Affect appropriate, Mood appropriate Critical Care Note - Critical Care Note Total Time (mins): 0 Course - Course Vital Signs: Temp Pulse Resp BP Pulse Ox 04/12/17 19:11 99.1 F 109 H 20 166/87 H 99 Departure - Departure Time of Disposition: 19:23 Disposition: HOME SELF-CARE Discharge Problem: Sinusitis Qualifiers: Sinusitis location: unspecified location Chronicity: acute Recurrence: not specified as recurrent Qualified Code(s): J01.90 - Acute sinusitis, unspecified Instructions: Sinusitis (ED) Condition: Good Pt referred to PMD for follow-up: Yes IPMP verified?: Yes Additional Instructions: augmentin 875mg bid x 10 days--flonase nasal spray one puff each nostril bid -- stop smokling--recheck in 72hfs if not better Allergies/Adverse Reactions: Allergies No Known Allergies Allergy (Verified 03/20/17 08:52) Home Medications: Ambulatory Orders 1 [No Reported Medications] 04/12/17 Disposition Discussed With: Patient
== END 2017-04-12 19:30 | disposition home or self-care (01) ==
LOC: ED 19:10
DX: J01.90 Acute sinusitis, unspecified (principal); F17.210 Nicotine dependence, cigarettes, uncomplicated
CPT/HCPCS: 99282

== ENCOUNTER 2017-04-25 03:16 | Emergency (ER) ==
[2017-04-25 03:28] VITALS: BP 155/98; TEMP 97.8; BMI 29.2
[2017-04-25] MEDS ORDERED: DECADRON 4 MG/ML SDV IM STA (04:22)
--- NOTE | 2017-04-25 04:25 | ED.PDOC ---
General ED Provider: Dr. NICOLE RODRIGUEZ Chief Complaint: Chest Pain Stated Complaint: sinus drainage, coughing, congestion. started chest pain with coughing. Time Seen by Physician: 04:23 Mode of Arrival: Walk-In Information Source: Patient Primary Care Provider: MORRIS CANNON Nursing and Triage Documentation Reviewed and Agree: Yes Reviewed sepsis parameters & appropriate labs ordered?: No System Inflammatory Response Syndrome: Not Applicable Sepsis Protocol: For patient's 13 years and over: Temp is 96.8 and below OR 101 and greater Pulse >90 BPM Resp >20/minute Acutely Altered Mental Status Are patient's symptoms suggestive of a new infection, such as: -Pneumonia -Skin, Soft Tissue -Endocarditis -UTI -Bone, Joint Infection -Implantable Device -Acute Abdominal Infection -Wound Infection -Meningitis -Blood Stream Catheter Infection -Unknown Respiratory Complaint Exam - Respiratory Complaint/Exam Symptoms Are: Still present Timing: Constant Initial Severity: Mild Current Severity: Mild Location: Nose, Chest Character: Reports: Productive cough Aggravating: Reports: URI Alleviating: Reports: None Associated Signs and Symptoms: Reports: Pleuritic chest pain, URI, Nasal congestion. Denies: Rapid breathing, Dyspnea, Fever, Chills, Chest pain, Wheezing, Hemoptysis, Dizziness, Calf pain, Calf swelling, Edema, Hoarseness, Sinus discomfort, Vomiting, Sore throat, Weight loss, Decreased oral intake, Increased thirst, Increased appetite, Increased urination Related History: Reports: Similar episode History of Healthcare-Acquired Pneumonia: No Related Surgical History: Reports: None Pulmonary Embolism Risk Factors: None Cardiac Risk Factors: Reports: None Pseudomonas Risk Factors: Reports: None Tuberculosis Risk Factors: Reports: None Status Asthmaticus Risk Factors: Reports: None Home Oxygen Use: No Recent Stress Test: No Recent Echo/LV Function: No Current Antibiotic Use: No Current Asthma Medication Use: No Respiratory Distress: None Inadequate Respiratory Effort: No Dysphagia Present: No Stridor Present: No JVD Present: No Accessory Muscle Use: No Retractions: Not Present Diminished Breath Sounds: No Prolonged Respiration: Inspiratory phase Sinus Tenderness: None Differential Diagnoses: Pneumonia, Bronchitis Review of Systems - Review Of Systems Constitutional: Reports: No symptoms Eyes: Reports: No symptoms Ears, Nose, Mouth, Throat: Reports: No symptoms Respiratory: Reports: Cough Cardiac: Reports: Chest pain GI: Reports: No symptoms : Reports: No symptoms Musculoskeletal: Reports: No symptoms Skin: Reports: No symptoms Neurological: Reports: No symptoms Endocrine: Reports: No symptoms Hematologic/Lymphatic: Reports: No symptoms All Other Systems: Reviewed and Negative Past Medical History - Past Medical History Previously Healthy: Yes Endocrine: Reports: Unknown Cardiovascular: Reports: Unknown Respiratory: Reports: Unknown Hematological: Reports: Unknown Gastrointestinal: Reports: Unknown Genitourinary: Reports: Unknown Neuro/Psych: Reports: Unknown Musculoskeletal: Reports: Unknown Cancer: Reports: Unknown Last Menstrual Period: 2 WEEKS AGO - Surgical History General Surgical History: Reports: Unknown - Family History Family History: Reports: Unknown - Social History Smoking Status: Current every day smoker, Light tobacco smoker Hx Substance Use: No Alcohol Screening: Occasionally - Immunizations Tetanus Shot up to Date: Yes Physical Exam - Physical Exam Appearance: Well-appearing, No pain distress, Well-nourished Eyes: JAYJAY, EOMI, Conjunctiva clear ENT: Ears normal, Nose normal, Oropharynx normal Respiratory: Airway patent, Breath sounds clear, Breath sounds equal, Respirations nonlabored Cardiovascular: RRR, Pulses normal, No rub, No murmur GI/: Soft, Nontender, No masses, Bowel sounds normal, No Organomegaly Musculoskeletal: Normal strength, ROM intact, No edema, No calf tenderness Skin: Warm, Dry, Normal color Neurological: Sensation intact, Motor intact, Reflexes intact, Cranial nerves intact, Alert, Oriented Psychiatric: Affect appropriate, Mood appropriate Interpretation - Radiology Interpretation Radiology Interpretation By: ED Physician Radiology Results: Negative Exam Interpreted: CXR Critical Care Note - Critical Care Note Total Time (mins): 15 Course - Course Orders, Labs, Meds: Orders Category Date Time Status EKG-(ED ONLY) Stat CARDIO 04/25/17 03:39 Ordered Dexamethasone 4 mg/ml Inj [Decadron 4 mg/ml Sdv] MEDS 04/25/17 04:22 Discontinued 4 mg IM ONCE STA Guaifenesin/Dextromethorphan [Robitussin Dm Syrup] MEDS 04/25/17 04:33 Discontinued 10 ml PO ONCE STA CHEST, 2 VIEWS PA & LAT Stat RADS 04/25/17 04:22 Taken Medications Discontinued Medications Generic Name Dose Route Start Last Admin Trade Name Freq PRN Reason Stop Dose Admin Dexamethasone Sodium Phosphate 4 mg 04/25/17 04:22 04/25/17 04:27 Decadron 4 Mg/Ml Sdv IM 04/25/17 04:23 4 mg ONCE STA Administration Guaifenesin/Dextromethorphan 10 ml 04/25/17 04:33 04/25/17 04:38 Robitussin Dm Syrup PO 04/25/17 04:34 10 ml ONCE STA Administration Vital Signs: Temp Pulse Resp BP Pulse Ox 04/25/17 03:19 97.8 F 112 H 18 155/98 H 98 Departure - Departure Time of Disposition: 04:29 Disposition: HOME SELF-CARE Discharge Problem: URTI (acute upper respiratory infection), Pleurisy Instructions: Upper Respiratory Infection (ED) Condition: Stable Pt referred to PMD for follow-up: Yes IPMP verified?: No Additional Instructions: Increase Hydration Probitics If not better f/u with PMD BP is high, keep checking it Prescriptions: Amoxicillin/Potassium Clav [Augmentin 500-125 mg Tab] 1 tab PO Q12HR #20 tablet Guaifenesin/Dextromethorphan [Robitussin Cough-Chest Dm Liq] 10 ml PO TID #1 bottle Prednisone 10 mg PO BIDWM #14 tablet Allergies/Adverse Reactions: Allergies No Known Allergies Allergy (Verified 03/20/17 08:52) Home Medications: Ambulatory Orders Amoxicillin/Potassium Clav [Augmentin 500-125 mg Tab] 1 tab PO Q12HR #20 tablet 04/25/17 Cyclobenzaprine HCl [Flexeril] 10 mg PO TID 04/25/17 Guaifenesin/Dextromethorphan [Robitussin Cough-Chest Dm Liq] 10 ml PO TID #1 bottle 04/25/17 Prednisone 10 mg PO BIDWM #14 tablet 04/25/17 Disposition Discussed With: Patient, Family
[2017-04-25] MEDS ORDERED: ROBITUSSIN DM SYRUP PO STA (04:33)
--- NOTE | 2017-04-25 07:10 | DI ---
EXAM: Two views of the chest. History: Chest pain. Comparison: Chest radiograph 07/13/2016 Findings: Heart size is normal. No focal consolidation. No appreciable pleural fluid and no pneumo thorax. No acute osseous abnormalities. Impression: No acute cardiopulmonary process
== END 2017-04-25 04:45 | disposition home or self-care (01) ==
LOC: ED 03:16
DX: J06.9 Acute upper respiratory infection, unspecified (principal); R09.1 Pleurisy; F17.210 Nicotine dependence, cigarettes, uncomplicated; R03.0 Elevated blood-pressure reading, without diagnosis of hypertension
CPT/HCPCS: 93005; 93010; 96372; 99282

== ENCOUNTER 2017-05-28 20:02 | Emergency (ER) ==
[2017-05-28 20:11] VITALS: BP 138/73; TEMP 99.3; BMI 31.1
--- NOTE | 2017-05-28 20:33 | ED.PDOC ---
General ED Provider: Dr. NICOLE RODRIGUEZ Chief Complaint: Sore Throat Stated Complaint: sore throat, patches on the tongue, hurts to swallow Time Seen by Physician: 20:31 Mode of Arrival: Walk-In Information Source: Patient Primary Care Provider: MORRIS CANNON Nursing and Triage Documentation Reviewed and Agree: Yes Reviewed sepsis parameters & appropriate labs ordered?: Yes System Inflammatory Response Syndrome: Not Applicable Sepsis Protocol: For patient's 13 years and over: Temp is 96.8 and below OR 101 and greater Pulse >90 BPM Resp >20/minute Acutely Altered Mental Status Are patient's symptoms suggestive of a new infection, such as: -Pneumonia -Skin, Soft Tissue -Endocarditis -UTI -Bone, Joint Infection -Implantable Device -Acute Abdominal Infection -Wound Infection -Meningitis -Blood Stream Catheter Infection -Unknown EENT Complaint Exam - Throat Complaint/Exam Symptoms Are: Still present Timimg: Constant Initial Severity: Mild Current Severity: Mild Aggravating: Reports: Eating Alleviating: Reports: None Associated Signs and Symptoms: Reports: Dysphagia. Denies: Fever, Drooling, Foreign body sensation, Chills, Cough, Wheezing, Hoarseness, Sinus discomfort, Nasal congestion, Difficulty breathing, Lethargy, Irritability, Decreased activity, Vomiting, Diarrhea, Decreased hearing, Ear drainage Related History: Reports: Similar Episode Uvula Midline: Yes Montse-tonsillar Fluctuence: No Scarlatinaform Rash Present: No Stridor Present: No Sinus Tenderness Present: No Tonsillar Hypertrophy Present: No Tonsillar Exudate Present: No Montse-tonsillar Swelling Present: No Adenopathy Present: No Differential Diagnoses: Pharyngitis Review of Systems - Review Of Systems Constitutional: Reports: No symptoms Eyes: Reports: No symptoms Ears, Nose, Mouth, Throat: Reports: Throat pain Respiratory: Reports: No symptoms Cardiac: Reports: No symptoms GI: Reports: No symptoms : Reports: No symptoms Musculoskeletal: Reports: No symptoms Skin: Reports: No symptoms Neurological: Reports: No symptoms Endocrine: Reports: No symptoms Hematologic/Lymphatic: Reports: No symptoms All Other Systems: Reviewed and Negative Past Medical History - Past Medical History Previously Healthy: Yes Endocrine: Reports: Unknown Cardiovascular: Reports: Unknown Respiratory: Reports: Unknown Hematological: Reports: Unknown Gastrointestinal: Reports: Unknown Genitourinary: Reports: Unknown Neuro/Psych: Reports: Unknown Musculoskeletal: Reports: Unknown Cancer: Reports: Unknown Last Menstrual Period: 3.5 weeks - Surgical History General Surgical History: Reports: Unknown - Family History Family History: Reports: Unknown - Social History Smoking Status: Current every day smoker, Light tobacco smoker Smoking Cessation Counseling Time: > 3 min - 10 min Hx Substance Use: No Alcohol Screening: Occasionally - Immunizations Tetanus Shot up to Date: Yes Physical Exam - Physical Exam Appearance: Well-appearing, No pain distress, Well-nourished Eyes: JAYJAY, EOMI, Conjunctiva clear ENT: Ears normal, Nose normal, Erythema (lips has white patches.) Respiratory: Airway patent, Breath sounds clear, Breath sounds equal, Respirations nonlabored Cardiovascular: RRR, Pulses normal, No rub, No murmur GI/: Soft, Nontender, No masses, Bowel sounds normal, No Organomegaly Musculoskeletal: Normal strength, ROM intact, No edema, No calf tenderness Skin: Warm, Dry, Normal color Neurological: Sensation intact, Motor intact, Reflexes intact, Cranial nerves intact, Alert, Oriented Psychiatric: Affect appropriate, Mood appropriate Critical Care Note - Critical Care Note Total Time (mins): 15 Course - Course Orders, Labs, Meds: Orders Category Date Time Status MOLECULAR GROUP A STREP Stat LAB 05/28/17 20:30 Uncollected Vital Signs: Temp Pulse Resp BP Pulse Ox 05/28/17 20:04 99.3 F 130 H 18 138/73 97 Departure - Departure Time of Disposition: 20:39 Disposition: HOME SELF-CARE Discharge Problem: Sore throat symptom, Leukoplakia of lips Condition: Stable Pt referred to PMD for follow-up: Yes IPMP verified?: No Additional Instructions: Take medication with food. Increase hydration needs f/u with PMD in 2-3 days, if the patches are not better need further evaluation Prescriptions: Amoxicillin/Potassium Clav [Augmentin 500-125 mg Tab] 1 tab PO Q12HR #20 tablet Nystatin [Nystatin Oral Susp] 5 ml PO ACHS #1 bottle Allergies/Adverse Reactions: Allergies No Known Allergies Allergy (Verified 03/20/17 08:52) Home Medications: Ambulatory Orders Amoxicillin/Potassium Clav [Augmentin 500-125 mg Tab] 1 tab PO Q12HR #20 tablet 04/25/17 Cyclobenzaprine HCl [Flexeril] 10 mg PO TID 04/25/17 Guaifenesin/Dextromethorphan [Robitussin Cough-Chest Dm Liq] 10 ml PO TID #1 bottle 04/25/17 Prednisone 10 mg PO BIDWM #14 tablet 04/25/17 Amoxicillin/Potassium Clav [Augmentin 500-125 mg Tab] 1 tab PO Q12HR #20 tablet 05/28/17 Nystatin [Nystatin Oral Susp] 5 ml PO ACHS #1 bottle 05/28/17 Disposition Discussed With: Patient, Family
== END 2017-05-28 20:52 | disposition home or self-care (01) ==
LOC: ED 20:02
DX: J02.9 Acute pharyngitis, unspecified (principal); K13.21 Leukoplakia of oral mucosa, including tongue; F17.210 Nicotine dependence, cigarettes, uncomplicated
CPT/HCPCS: 87651; 99283

== ENCOUNTER 2017-06-26 14:45 | Emergency (ER) ==
[2017-06-26 14:49] VITALS: BP 145/95; TEMP 98; BMI 27.4
--- NOTE | 2017-06-26 15:34 | DI ---
EXAM: Radiographs, right hand HISTORY: Initial presentation for right hand trauma. COMPARISON: None available. TECHNIQUE: Three views. FINDINGS: Bone mineralization is normal. There is no fracture or dislocation. The joint spaces are maintained. No focal soft tissue abnormality is seen. IMPRESSION: No fracture or dislocation.
--- NOTE | 2017-06-26 15:36 | DI ---
EXAM: Radiographs, right wrist HISTORY: Initial presentation for right wrist trauma. COMPARISON: None available. TECHNIQUE: Three views. FINDINGS: Bone mineralization is normal. There is no fracture or dislocation. The joint spaces are maintained. No focal soft tissue abnormality is seen. IMPRESSION: No fracture or dislocation.
--- NOTE | 2017-06-26 15:47 | ED.PDOC ---
General ED Provider: Dr. ROMARIO ESPINOZA Chief Complaint: Hand Pain/Injury Stated Complaint: right ahnd and wrist pain Time Seen by Physician: 15:45 ( seen with nursing staff) Mode of Arrival: Walk-In Information Source: Patient Exam Limitations: No limitations Primary Care Provider: MORRIS CANNON Nursing and Triage Documentation Reviewed and Agree: Yes Reviewed sepsis parameters & appropriate labs ordered?: Yes (blunt force trauma ) System Inflammatory Response Syndrome: Not Applicable Sepsis Protocol: For patient's 13 years and over: Temp is 96.8 and below OR 101 and greater Pulse >90 BPM Resp >20/minute Acutely Altered Mental Status Are patient's symptoms suggestive of a new infection, such as: -Pneumonia -Skin, Soft Tissue -Endocarditis -UTI -Bone, Joint Infection -Implantable Device -Acute Abdominal Infection -Wound Infection -Meningitis -Blood Stream Catheter Infection -Unknown System Inflammatory Response Syndrome: Not Applicable Trauma/Injury Complaint Exam - Trauma Complaint/Exam Location of Pain or Injury: Reports: RUE (hand , wrist pain), RLE Mechanism of Injury: Reports: Other (pain after blunt force trauma ) Onset/Duration: 1 day Symptoms Are: Still present Timing of Treatment: Immediate Initial Severity: Moderate Current Severity: Moderate Character: Reports: Aching Aggravating: Reports: Movement Alleviating: Reports: Rest Associated Signs and Symptoms: Denies: LOC, Confusion, Memory loss, Lethargy, Vomiting, Bleeding, Bruising, Swelling, Extremity disuse, Painful respiration, Hoarseness, Dysphagia, Hemoptysis, Significant blood loss Related History: Reports: Similar episode : No Penetrating Injury Risk Factors: Reports: None (blunt force trauma punched a wall) Review of Systems - Review Of Systems Constitutional: Reports: No symptoms Eyes: Reports: No symptoms Ears, Nose, Mouth, Throat: Reports: No symptoms Respiratory: Reports: No symptoms Cardiac: Reports: No symptoms GI: Reports: No symptoms : Reports: No symptoms Musculoskeletal: Reports: Joint pain (hand and wrist) Skin: Reports: No symptoms Neurological: Reports: No symptoms Endocrine: Reports: No symptoms Hematologic/Lymphatic: Reports: No symptoms All Other Systems: Reviewed and Negative Past Medical History - Past Medical History Previously Healthy: Yes Endocrine: Reports: Unknown Cardiovascular: Reports: Unknown Respiratory: Reports: Unknown Hematological: Reports: Unknown Gastrointestinal: Reports: Unknown Genitourinary: Reports: Unknown Neuro/Psych: Reports: Unknown Musculoskeletal: Reports: Unknown Cancer: Reports: Unknown Last Menstrual Period: now - Surgical History General Surgical History: Reports: Unknown - Family History Family History: Reports: Unknown - Social History Smoking Status: Current every day smoker, Light tobacco smoker Hx Substance Use: No Alcohol Screening: Occasionally Physical Exam - Physical Exam Appearance: Well-appearing, No pain distress, Well-nourished Eyes: JAYJAY, EOMI, Conjunctiva clear ENT: Ears normal, Nose normal, Oropharynx normal Respiratory: Airway patent, Breath sounds clear, Breath sounds equal, Respirations nonlabored Cardiovascular: RRR, Pulses normal, No rub, No murmur GI/: Soft, Nontender, No masses, Bowel sounds normal, No Organomegaly Musculoskeletal: Limited ROM (right hand no pain over snuff box ) Skin: Warm, Dry, Normal color Neurological: Sensation intact, Motor intact, Reflexes intact, Cranial nerves intact, Alert, Oriented Psychiatric: Affect appropriate, Mood appropriate Critical Care Note - Critical Care Note Total Time (mins): 0 Course - Course Orders, Labs, Meds: Orders Category Date Time Status HAND, RIGHT 3 VIEWS Stat RADS 06/26/17 15:05 Completed WRIST, RIGHT 3 VIEWS Stat RADS 06/26/17 15:05 Completed Vital Signs: Temp Pulse Resp BP Pulse Ox 06/26/17 14:45 98.0 F 108 H 16 145/95 H 97 Departure - Departure Time of Disposition: 15:50 Disposition: HOME SELF-CARE Discharge Problem: Injury of hand Sprain of hand, right Qualifiers: Encounter type: initial encounter Qualified Code(s): S63.91XA - Sprain of unspecified part of right wrist and hand, initial encounter Instructions: Hand Sprain (ED) Condition: Good Pt referred to PMD for follow-up: Yes IPMP verified?: No Allergies/Adverse Reactions: Allergies No Known Allergies Allergy (Verified 06/26/17 14:50) Home Medications: Ambulatory Orders 1 [No Reported Medications] 06/26/17
== END 2017-06-26 16:03 | disposition home or self-care (01) ==
LOC: ED 14:45
DX: S63.91XA Sprain of unspecified part of right wrist and hand, initial encounter (principal); W22.8XXA Striking against or struck by other objects, initial encounter; F17.210 Nicotine dependence, cigarettes, uncomplicated
CPT/HCPCS: 99283

== ENCOUNTER 2018-05-23 18:58 | Emergency (ER) | payer OTHER, MEDICAID ==
[2018-05-23 19:02] VITALS: TEMP 99.4; BMI 28.4
--- NOTE | 2018-05-23 19:51 | ED.PDOC ---
General ED Provider: Dr. ZANE ARREDONDO Chief Complaint: Urinary Problem Stated Complaint: dysuria,frequency and it hurts at CVA bilat.Last couple of years ago. Time Seen by Physician: 19:53 Mode of Arrival: Walk-In Information Source: Patient Exam Limitations: No limitations Primary Care Provider: MORRIS CANNON Nursing and Triage Documentation Reviewed and Agree: Yes Does patient meet sepsis criteria?: No (pT IN CONSIDERED SEPTIC UNLESS LAB REC NEG.) System Inflammatory Response Syndrome: Not Applicable Sepsis Protocol: For patient's 13 years and over: Temp is 96.8 and below OR 101 and greater Pulse >90 BPM Resp >20/minute Acutely Altered Mental Status Are patient's symptoms suggestive of a new infection, such as: -Pneumonia -Skin, Soft Tissue -Endocarditis -UTI -Bone, Joint Infection -Implantable Device -Acute Abdominal Infection -Wound Infection -Meningitis -Blood Stream Catheter Infection -Unknown Complaint Exam - UTI Female Complaint/Exam Patient Complains of: Reports: Painful urination Onset/Duration: 4 days Symptoms Are: Still present Timing: Intermittent Initial Severity: Moderate Current Severity: Moderate Location of Pain: Reports: Suprapubic Associated Signs and Symptoms: Reports: Flank pain Related Surgical History: Reports: None CVA Tenderness: Yes Suprapubic Tenderness: No Differential Diagnoses: Bladder Dysfunction, Pyelonephritis, STD Review of Systems - Review Of Systems Constitutional: Reports: No symptoms Eyes: Reports: No symptoms Ears, Nose, Mouth, Throat: Reports: No symptoms Respiratory: Reports: No symptoms Cardiac: Reports: No symptoms GI: Reports: No symptoms : Reports: Burning, Dysuria Musculoskeletal: Reports: No symptoms Neurological: Reports: No symptoms Endocrine: Reports: No symptoms Hematologic/Lymphatic: Reports: No symptoms All Other Systems: Reviewed and Negative Past Medical History - Past Medical History Previously Healthy: Yes Endocrine: Reports: Unknown Cardiovascular: Reports: Unknown Respiratory: Reports: Unknown Hematological: Reports: Unknown Gastrointestinal: Reports: Unknown Genitourinary: Reports: Unknown Neuro/Psych: Reports: Unknown Musculoskeletal: Reports: Unknown Cancer: Reports: Unknown Last Menstrual Period: 4 weeks ago - Surgical History General Surgical History: Reports: Unknown - Family History Family History: Reports: Unknown - Social History Smoking Status: Current every day smoker, Light tobacco smoker Hx Substance Use: No Alcohol Screening: Occasionally Physical Exam - Physical Exam Appearance: Well-appearing Ill-appearing: None Pain Distress: Mild Eyes: JAYJAY ENT: Ears normal Neck: Supple Respiratory: Airway patent GI/: Soft Musculoskeletal: Normal strength Skin: Warm Neurological: Sensation intact Psychiatric: Affect appropriate Re-Evaluation - Re-Evaluation Time of Re-Evaluation: 21:05 Status: Unchanged Vital Signs Stable: Yes Appearance: NAD Lungs: Clear Skin: Warm and Dry Neuro: Alert and Oriented X3 CV: RRR Additional Comments: .Lab reviewed,PT rexamined,Rocephin 1 gm IV NS 1000 brennan, Critical Care Note - Critical Care Note Total Time (mins): 0 Course - Course Hematology/Chemistry: 05/23/18 20:25 05/23/18 20:25 Orders, Labs, Meds: Lab Review 05/23/18 05/23/18 05/23/18 19:05 20:19 20:25 WBC 14.49 H RBC 4.33 Hgb 14.6 Hct 41.3 MCV 95.4 MCH 33.7 H MCHC 35.4 RDW Coeff of Erik 12.9 Plt Count 358 Immature Gran % (Auto) 0.3 Neut % (Auto) 83.1 Lymph % (Auto) 10.6 [place] % (Auto) 5.7 Eos % (Auto) 0.1 Baso % (Auto) 0.2 Immature Gran # (Auto) 0.1 Neut # (Auto) 12.0 H Lymph # (Auto) 1.5 [place] # (Auto) 0.8 Eos # (Auto) 0.0 Baso # (Auto) 0.0 Sodium Potassium Chloride Carbon Dioxide Anion Gap BUN Creatinine Estimated GFR (MDRD) BUN/Creatinine Ratio Glucose Calcium Total Bilirubin AST ALT Alkaline Phosphatase Total Protein Albumin Globulin Albumin/Globulin Ratio Urine Color Yellow Urine Clarity Turbid Urine pH 6.0 Ur Specific [place] >=1.030 Urine Protein 3+ Urine Glucose (UA) Negative Urine Ketones 1+ Urine Blood 3+ Urine Nitrite Positive Urine Bilirubin Negative Urine Urobilinogen 1.0 Ur Leukocyte Esterase 1+ Urine Microscopic RBC 20-30 Urine Microscopic WBC Tntc Ur Squamous Epith Cells 5-10 Urine Bacteria 3+ Urine Mucus 2+ Urine Test Negative 05/23/18 20:25 WBC RBC Hgb Hct MCV MCH MCHC RDW Coeff of Erik Plt Count Immature Gran % (Auto) Neut % (Auto) Lymph % (Auto) [place] % (Auto) Eos % (Auto) Baso % (Auto) Immature Gran # (Auto) Neut # (Auto) Lymph # (Auto) [place] # (Auto) Eos # (Auto) Baso # (Auto) Sodium 138.1 Potassium 3.19 L Chloride 98.0 Carbon Dioxide 27.8 Anion Gap 15.49 BUN 4.1 L Creatinine 0.62 Estimated GFR (MDRD) 118.00 BUN/Creatinine Ratio 6.61 Glucose 108.3 H Calcium 9.27 Total Bilirubin 1.37 H AST 36.6 H ALT 22.8 Alkaline Phosphatase 110.4 Total Protein 8.27 H Albumin 4.80 Globulin 3.47 Albumin/Globulin Ratio 1.38 Urine Color Urine Clarity Urine pH Ur Specific [place] Urine Protein Urine Glucose (UA) Urine Ketones Urine Blood Urine Nitrite Urine Bilirubin Urine Urobilinogen Ur Leukocyte Esterase Urine Microscopic RBC Urine Microscopic WBC Ur Squamous Epith Cells Urine Bacteria Urine Mucus Urine Test Orders Category Date Time Status ED IV/MEDIPORT/POWERPORT .ONCE EMERGENCY 05/23/18 20:57 Active CBC W/ AUTO DIFF Stat LAB 05/23/18 20:25 Completed CMP [COMPREHENSIVE METABOLIC PANEL] Stat LAB 05/23/18 20:25 Completed URINALYSIS C & S IF INDICATED Stat LAB 05/23/18 19:05 Completed URINE CULTURE Stat LAB 05/23/18 19:05 Completed URINE Stat LAB 05/23/18 20:19 Completed 0.9 % Sodium Chloride [Saline Flush] MEDS 05/23/18 20:57 Discontinued 1 syr IVF PRN PRN Acetaminophen [Tylenol] MEDS 05/23/18 21:26 Discontinued 650 mg PO ONCE STA Ceftriaxone Sodium [Rocephin] MEDS 05/23/18 21:03 Discontinued 1 gm .ROUTE .STK-MED ONE Ceftriaxone Sodium [Rocephin] 1 gm MEDS 05/23/18 20:57 Discontinued 0.9 % Sodium Chloride [Sodium Chloride] 50 ml IV ONCE Lisinopril [Zestril] MEDS 05/23/18 21:21 Discontinued 20 mg PO ONCE STA Sodium Chloride 0.9% [Sodium Chloride] 1,000 ml MEDS 05/23/18 20:59 Discontinued IV BOLUS Medications Discontinued Medications Generic Name Dose Route Start Last Admin Trade Name Freq PRN Reason Stop Dose Admin Acetaminophen 650 mg 05/23/18 21:26 05/23/18 21:29 Tylenol PO 05/23/18 21:27 650 mg ONCE STA Administration Ceftriaxone Sodium 1 gm/ 50 mls @ 75 mls/hr 05/23/18 20:57 05/23/18 21:12 Sodium Chloride IV 05/23/18 21:36 75 mls/hr ONCE STA Administration Sodium Chloride 1,000 mls @ 1,000 mls/hr 05/23/18 20:59 05/23/18 21:13 Sodium Chloride IV 05/23/18 21:58 1,000 mls/hr BOLUS STA Administration Lisinopril 20 mg 05/23/18 21:21 05/23/18 21:29 Zestril PO 05/23/18 21:22 20 mg ONCE STA Administration Sodium Chloride 1 syr 05/23/18 20:57 05/23/18 21:13 Saline Flush IVF 1 syr PRN PRN Administration To flush IV Vital Signs: Temp Pulse Resp BP Pulse Ox 05/23/18 22:40 129/70 05/23/18 22:15 130/62 05/23/18 22:00 135/76 05/23/18 21:40 141/89 H 05/23/18 18:58 99.4 F 92 H 16 163/100 H 98 Departure - Departure Time of Disposition: 23:15 Disposition: HOME SELF-CARE Discharge Problem: UTI (urinary tract infection) Instructions: Urinary Tract Infection in Women (ED) Condition: Good Pt referred to PMD for follow-up: Yes (PCP of choice) IPMP verified?: No Additional Instructions: Rx to take home for Cipro 750 mg PO QD x 5 days and Lisinopril 20 mg PO QD at AM.Follow with PCP in 3 days. Allergies/Adverse Reactions: Allergies No Known Allergies Allergy (Verified 05/23/18 19:02) Home Medications: Ambulatory Orders 1 [No Reported Medications] 06/26/17 Disposition Discussed With: Patient, Family
[2018-05-23 20:31] LABS: URINE PREGNANCY TEST NEGATIVE (NEGATIVE)
[2018-05-23] MEDS: ROCEPHIN 1 GM in SODIUM CHLORIDE 50 ML IV STA (21:12)
[2018-05-23] MEDS: SODIUM CHLORIDE 1,000 ML IV STA (21:13)
[2018-05-23] MEDS: ROCEPHIN ONE (21:13)
[2018-05-23] MEDS: ZESTRIL PO STA (21:29)
[2018-05-23] MEDS: TYLENOL PO STA (21:29)
[2018-05-23 22:52] VITALS: BP 129/70
== END 2018-05-23 22:50 | disposition home or self-care (01) ==
LOC: ED 18:58
DX: N39.0 Urinary tract infection, site not specified (principal); F17.210 Nicotine dependence, cigarettes, uncomplicated
CPT/HCPCS: 36415; 80053; 81001; 81025; 85025; 87086; 87186; 96361; 96365; 99284

== ENCOUNTER 2018-07-15 18:12 | Emergency (ER) ==
[2018-07-15 18:16] VITALS: TEMP 98.8; BMI 28.1
[2018-07-15] MEDS ORDERED: BENADRYL IVP STA (18:22)
[2018-07-15] MEDS ORDERED: SOLU-MEDROL 125 MG IVP STA (18:22)
[2018-07-15 18:44] VITALS: BP 150/106
--- NOTE | 2018-07-15 19:01 | ED.PDOC ---
General ED Provider: Dr. MORRIS CANNON-ER Chief Complaint: Allergic Reaction Stated Complaint: my lips are swollen Time Seen by Physician: 19:00 Mode of Arrival: Walk-In Information Source: Patient Exam Limitations: No limitations Primary Care Provider: MORRIS CANNON Nursing and Triage Documentation Reviewed and Agree: Yes Does patient meet sepsis criteria?: No System Inflammatory Response Syndrome: Not Applicable Sepsis Protocol: For patient's 13 years and over: Temp is 96.8 and below OR 101 and greater Pulse >90 BPM Resp >20/minute Acutely Altered Mental Status Are patient's symptoms suggestive of a new infection, such as: -Pneumonia -Skin, Soft Tissue -Endocarditis -UTI -Bone, Joint Infection -Implantable Device -Acute Abdominal Infection -Wound Infection -Meningitis -Blood Stream Catheter Infection -Unknown Skin Complaint Exam - Skin/Soft Tissue Complaint/Exam Onset/Duration: today Symptoms Are: Still present Timing: Constant Initial Severity: Mild Current Severity: Mild Location: lipis Character: Reports: Swelling, Raised Associated Signs and Symptoms: Denies: Fever, Chills, Itching, Drainage, Bruising, Tenderness, Red streaks, Joint swelling Recent Exposure to Others w/Similar Symptoms: No Joint Tenderness Present: No Differential Diagnoses: Other Review of Systems - Review Of Systems Constitutional: Reports: No symptoms Eyes: Reports: No symptoms Ears, Nose, Mouth, Throat: Reports: No symptoms Respiratory: Reports: No symptoms Cardiac: Reports: No symptoms GI: Reports: No symptoms : Reports: No symptoms Musculoskeletal: Reports: No symptoms Skin: Reports: No symptoms Neurological: Reports: No symptoms Endocrine: Reports: No symptoms Hematologic/Lymphatic: Reports: No symptoms All Other Systems: Reviewed and Negative Past Medical History - Past Medical History Previously Healthy: Yes Endocrine: Reports: Unknown Cardiovascular: Reports: Unknown Respiratory: Reports: Unknown Hematological: Reports: Unknown Gastrointestinal: Reports: Unknown Genitourinary: Reports: Unknown Neuro/Psych: Reports: Unknown Musculoskeletal: Reports: Unknown Cancer: Reports: Unknown Last Menstrual Period: july 06 - Surgical History General Surgical History: Reports: Unknown - Family History Family History: Reports: Unknown - Social History Smoking Status: Current every day smoker, Light tobacco smoker Hx Substance Use: No Alcohol Screening: Occasionally Physical Exam - Physical Exam Appearance: Well-appearing, No pain distress, Well-nourished Eyes: JAYJAY, EOMI, Conjunctiva clear ENT: Ears normal, Nose normal, Oropharynx normal Neck: Supple Respiratory: Airway patent, Breath sounds clear, Breath sounds equal, Respirations nonlabored Cardiovascular: RRR, Pulses normal, No rub, No murmur GI/: Soft, Nontender, No masses, Bowel sounds normal, No Organomegaly Musculoskeletal: Normal strength Skin: Warm, Dry, Normal color Neurological: Sensation intact, Motor intact, Reflexes intact, Cranial nerves intact, Alert, Oriented Psychiatric: Affect appropriate, Mood appropriate Re-Evaluation - Re-Evaluation Time of Re-Evaluation: 19:00 Status: Improved Vital Signs Stable: Yes Pain Level: 0 Appearance: NAD Lungs: Clear Skin: Warm and Dry Neuro: Alert and Oriented X3 CV: RRR Critical Care Note - Critical Care Note Total Time (mins): 0 Course - Course Orders, Labs, Meds: Orders Category Date Time Status ED HISTORICAL SITE GUIDE APPLIED .ONCE EMERGENCY 07/15/18 18:22 Active ED IV/MEDIPORT/POWERPORT .ONCE EMERGENCY 07/15/18 18:22 Active RAPID STREP SCREEN [MOLECULAR GROUP A STREP] Stat LAB 07/15/18 18:42 Completed 0.9 % Sodium Chloride [Saline Flush] MEDS 07/15/18 18:21 Ordered 1 syr IVF PRN PRN Diphenhydramine Inj [Benadryl] MEDS 07/15/18 18:22 Discontinued 50 mg IVP ONCE STA Methylprednisolone Sod Succ/Pf [Solu-Medrol 125 mg] MEDS 07/15/18 18:22 Discontinued 80 mg IVP ONCE STA Medications Generic Name Dose Route Start Last Admin Trade Name Freq PRN Reason Stop Dose Admin Sodium Chloride 1 syr 07/15/18 18:21 07/15/18 18:37 Saline Flush IVF 1 syr PRN PRN Administration To flush IV Discontinued Medications Generic Name Dose Route Start Last Admin Trade Name Freq PRN Reason Stop Dose Admin Diphenhydramine HCl 50 mg 07/15/18 18:22 07/15/18 18:37 Benadryl IVP 07/15/18 18:23 50 mg ONCE STA Administration Methylprednisolone Sodium Succinate 80 mg 07/15/18 18:22 07/15/18 18:39 Solu-Medrol 125 Mg IVP 07/15/18 18:23 80 mg ONCE STA Administration Vital Signs: Temp Pulse Resp BP Pulse Ox 07/15/18 18:30 119 H 20 150/106 H 07/15/18 18:13 98.8 F 135 H 20 144/104 H 98 Departure - Departure Time of Disposition: 19:01 Disposition: HOME SELF-CARE Discharge Problem: Allergic state Instructions: General Allergic Reaction (ED) Condition: Good Pt referred to PMD for follow-up: Yes IPMP verified?: No Additional Instructions: medrol dose pack--zyrtec 10mg #30---cool compresses---see me this week about your blood pressure Allergies/Adverse Reactions: Allergies No Known Allergies Allergy (Verified 07/15/18 18:17) Home Medications: Ambulatory Orders 1 [No Reported Medications] 06/26/17 Transfer Form Completed: No Disposition Discussed With: Patient
== END 2018-07-15 19:13 | disposition home or self-care (01) ==
LOC: ED 18:12
DX: T78.3XXA Angioneurotic edema, initial encounter (principal); R03.0 Elevated blood-pressure reading, without diagnosis of hypertension; F17.210 Nicotine dependence, cigarettes, uncomplicated
CPT/HCPCS: 87651; 96374; 96375; 99283

== ENCOUNTER 2018-09-10 15:19 | Emergency (ER) | payer OTHER, MEDICAID ==
[2018-09-10 15:23] VITALS: BP 130/87; TEMP 98.8; BMI 28.5
[2018-09-10] MEDS ORDERED: K-DUR PO STA (16:27)
--- NOTE | 2018-09-10 16:31 | ED.PDOC ---
General ED Provider: Dr. ROMARIO ESPINOZA Chief Complaint: Respiratory Complaint Stated Complaint: cough , congestion x 3 days . pt is an avid smoker and is in her first trimester of her pregnency. pt admitts to smoking 1/2 to a full pack perday she is 3.5 months . Time Seen by Physician: 15:27 (nurse present at all times ) Mode of Arrival: Walk-In Information Source: Patient Exam Limitations: No limitations Primary Care Provider: MORRIS CANNON Referred to ED by: Other (mode ledezma present we discussed smoking issue ) Nursing and Triage Documentation Reviewed and Agree: Yes Does patient meet sepsis criteria?: No System Inflammatory Response Syndrome: Not Applicable Sepsis Protocol: For patient's 13 years and over: Temp is 96.8 and below OR 101 and greater Pulse >90 BPM Resp >20/minute Acutely Altered Mental Status Are patient's symptoms suggestive of a new infection, such as: -Pneumonia -Skin, Soft Tissue -Endocarditis -UTI -Bone, Joint Infection -Implantable Device -Acute Abdominal Infection -Wound Infection -Meningitis -Blood Stream Catheter Infection -Unknown Respiratory Complaint Exam - Respiratory Complaint/Exam Onset/Duration: 4 days Symptoms Are: Resolved Timing: Intermittent Initial Severity: Mild Current Severity: Mild Location: Nose, Throat, Chest Character: Reports: Non-productive cough, Dry cough Aggravating: Reports: URI Alleviating: Reports: Spontaneous resolution Associated Signs and Symptoms: Reports: URI, Nasal congestion, Sore throat. Denies: Rapid breathing, Dyspnea, Fever, Chills, Chest pain, Pleuritic chest pain, Wheezing, Hemoptysis, Dizziness, Calf pain, Calf swelling, Edema, Hoarseness, Sinus discomfort, Vomiting, Weight loss, Decreased oral intake, Increased thirst, Increased appetite, Increased urination Related History: Reports: Similar episode History of Healthcare-Acquired Pneumonia: No Related Surgical History: Reports: None Pulmonary Embolism Risk Factors: Smoking Cardiac Risk Factors: Reports: Smoking Pseudomonas Risk Factors: Reports: None Tuberculosis Risk Factors: Reports: None Status Asthmaticus Risk Factors: Reports: None Home Oxygen Use: No Recent Stress Test: No Recent Echo/LV Function: No Current Antibiotic Use: No Current Asthma Medication Use: No Respiratory Distress: None Inadequate Respiratory Effort: No Dysphagia Present: No Stridor Present: No JVD Present: No Accessory Muscle Use: No Retractions: Not Present Diminished Breath Sounds: No Sinus Tenderness: None Grunting Respirations: No Kussmaul Respirations: No Differential Diagnoses: Bronchitis, URI Review of Systems - Review Of Systems Constitutional: Reports: No symptoms Eyes: Reports: No symptoms Ears, Nose, Mouth, Throat: Reports: No symptoms Respiratory: Reports: Cough Cardiac: Reports: No symptoms GI: Reports: No symptoms : Reports: No symptoms Musculoskeletal: Reports: No symptoms Skin: Reports: No symptoms Neurological: Reports: No symptoms Endocrine: Reports: No symptoms Hematologic/Lymphatic: Reports: No symptoms All Other Systems: Reviewed and Negative Past Medical History - Past Medical History Previously Healthy: Yes Endocrine: Reports: Unknown Cardiovascular: Reports: Unknown Respiratory: Reports: Unknown Hematological: Reports: Unknown Gastrointestinal: Reports: Unknown Genitourinary: Reports: Unknown Neuro/Psych: Reports: Unknown Musculoskeletal: Reports: Unknown Cancer: Reports: Unknown Last Menstrual Period: 3 months preg. - Surgical History General Surgical History: Reports: Unknown - Family History Family History: Reports: Unknown - Social History Smoking Status: Current every day smoker, Light tobacco smoker Hx Substance Use: No Alcohol Screening: None Physical Exam - Physical Exam Appearance: Well-appearing, No pain distress, Well-nourished Eyes: JAYJAY, EOMI, Conjunctiva clear ENT: Ears normal, Nose normal, Oropharynx normal Respiratory: Rhonchi (lower long) Cardiovascular: RRR, Pulses normal, No rub, No murmur GI/: Soft, Nontender, No masses, Bowel sounds normal, No Organomegaly Musculoskeletal: Normal strength, ROM intact, No edema, No calf tenderness Skin: Warm, Dry, Normal color Neurological: Sensation intact, Motor intact, Reflexes intact, Cranial nerves intact, Alert, Oriented Psychiatric: Affect appropriate, Mood appropriate Critical Care Note - Critical Care Note Total Time (mins): 0 Course - Course Hematology/Chemistry: 09/10/18 15:53 09/10/18 15:53 Orders, Labs, Meds: Lab Review 09/10/18 09/10/18 09/10/18 15:53 15:53 16:10 WBC 13.95 H RBC 3.62 L Hgb 11.9 L Hct 32.7 L MCV 90.3 MCH 32.9 H MCHC 36.4 H RDW Coeff of Erik 10.8 L Plt Count 330 Immature Gran % (Auto) 0.5 Neut % (Auto) 74.6 Lymph % (Auto) 20.5 [place] % (Auto) 3.8 Eos % (Auto) 0.4 Baso % (Auto) 0.2 Immature Gran # (Auto) 0.1 Neut # (Auto) 10.4 H Lymph # (Auto) 2.9 [place] # (Auto) 0.5 Eos # (Auto) 0.1 Baso # (Auto) 0.0 Sodium 137.3 Potassium 3.18 L Chloride 105.8 Carbon Dioxide 20.9 L Anion Gap 13.78 BUN 4.6 L Creatinine 0.41 L Estimated GFR (MDRD) 191.00 BUN/Creatinine Ratio 11.21 Glucose 97.5 Calcium 9.18 Total Bilirubin 0.49 AST 19.2 ALT 13.9 Alkaline Phosphatase 75.6 Total Protein 6.92 Albumin 4.04 Globulin 2.88 Albumin/Globulin Ratio 1.40 Influ A Molecular Assay Negative by naat Influ B Molecular Assay Negative by naat Orders Category Date Time Status CBC W/ AUTO DIFF Stat LAB 09/10/18 15:40 Ordered COMPREHENSIVE METABOLIC PANEL Stat LAB 09/10/18 15:40 Ordered FLU A/B MOLECULAR Stat LAB 09/10/18 15:40 Uncollected MOLECULAR GROUP A STREP Stat LAB 09/10/18 15:40 Uncollected Potassium Chloride [K-Dur] MEDS 09/10/18 16:27 Stat 40 meq PO ONCE STA Medications Discontinued Medications Generic Name Dose Route Start Last Admin Trade Name Freq PRN Reason Stop Dose Admin Potassium Chloride 40 meq 09/10/18 16:27 09/10/18 16:33 K-Dur PO 09/10/18 16:28 40 meq ONCE STA Administration Vital Signs: Temp Pulse Resp BP Pulse Ox 09/10/18 15:20 98.8 F 98 H 20 130/87 97 Departure - Departure Time of Disposition: 16:32 (bret from radiology did discuss the issue of chest xray , lead daniela discussed pt refused the xrays due to siks) Disposition: HOME SELF-CARE Discharge Problem: Cough in adult, Hypokalemia Instructions: Hypokalemia (ED), Acute Cough (ED), How to Stop Smoking (ED), Smoke Inhalation (ED), Secondhand Smoke Exposure in Children (ED) Condition: Good Pt referred to PMD for follow-up: Yes IPMP verified?: No Additional Instructions: Please call your Family Physician as soon as possible to schedule a follow-up appointment. Prescriptions: Potassium Chloride [K-Dur] 40 meq PO DAILY #4 tab Allergies/Adverse Reactions: Allergies No Known Allergies Allergy (Verified 09/10/18 15:23) Home Medications: Ambulatory Orders Potassium Chloride [K-Dur] 40 meq PO DAILY #4 tab 09/10/18 No122/Iron/Folic Acid [ Multi Tablet] 1 each PO DAILY 09/10/18 Disposition Discussed With: Patient, Family
== END 2018-09-10 16:42 | disposition home or self-care (01) ==
LOC: ED 15:19
DX: R05 Cough (principal); E87.6 Hypokalemia; F17.210 Nicotine dependence, cigarettes, uncomplicated; Z33.1 Pregnant state, incidental; R09.89 Other specified symptoms and signs involving the circulatory and respiratory systems
CPT/HCPCS: 36415; 80053; 85025; 87502; 87651; 99283

== ENCOUNTER 2018-11-28 16:37 | Outpatient (CLI) | END 2018-11-28 16:57 | disposition short-term general hospital (02) | LOC: AMBL 16:37 | PROVIDERS: ATTEND Emergency Medicine | DX: R10.9 Unspecified abdominal pain (principal); N89.8 Other specified noninflammatory disorders of vagina; Z33.1 Pregnant state, incidental ==